=== PATIENT | male | born 1975 | race Caucasian/White ===

== ENCOUNTER 2016-11-22 07:20 | Inpatient (IN) | payer MEDICAID ==
[2016-11-22] VITALS (16 sets, daily range): BP systolic 90–147; BP diastolic 75–107; PULSE 73–106; RESP 16–22; TEMP 98–102.9; O2SAT 97–100
[~2016-11-22] VITALS: Ht 185.4 cm; Wt 71.2 kg
[~2016-11-22 07:20] MED LIST: BACT800T5 PO; ERYT1O LEFT EYE
[2016-11-22] MEDS ORDERED: SODIUM CHLOR 0.9% 1000 ML INJ 1,000 ML IV SCH (07:36)
--- NOTE | 2016-11-22 07:43 | PD ---
HPI Chief Complaint: Cold / Flu Symptoms Time Seen by Provider: 07:25 Travel History International Travel<30 days: No Contact w/Intl Traveler<30days: No Traveled to known affect area: No History of Present Illness HPI The patient's 40 years old. He arrives with flulike symptoms starting about 4 days prior. The patient drank alcohol, about 6 drinks, and ate fried portobello mushrooms the night prior to the onset of symptoms. That morning he woke up nauseated with chest pain. He vomited and had diarrhea. Over the past 2 days nausea persisted. A temperature as high as 102.1 at home was observed. The patient has retrocardiac and left chest pain today. He states that when he lies prone/lateral recumbent on the left side then the pain is more noticeable. He denies exertional component. An occasional cough is reported. He also has shortness of breath. He has no history of diabetes hypertension or hyperlipidemia. There is no family history of coronary artery disease. Patient smokes tobacco about one pack per 2 days. The patient also has generalized abdominal pain the most noticeable in the region of the epigastrium. [facility] Past Medical History Anxiety: Yes Diminished Hearing: No Past Surgical History Eye Surgery: Yes (lazy eye repair as a child) Oral Surgery: Yes (wisdom teeth) Social History Alcohol Use: Yes (occas. beer) Tobacco Use: Yes (1/2 ppd) Substance Use: No Allergies-Medications (Allergen,Severity, Reaction): Coded Allergies: No Known Allergies (Verified , 11/22/16) Reported Meds & Prescriptions Reported Meds & Active Scripts Active No Active Prescriptions or Reported Medications Review of Systems Except as stated in HPI: all other systems reviewed are Neg General / Constitutional: Positive: Fever Cardiovascular: Positive: Chest Pain or Discomfort Respiratory: Positive: Cough (occasional), Shortness of Breath Gastrointestinal: Positive: Nausea, Vomiting, Diarrhea, Abdominal Pain Physical Exam Narrative GENERAL: 40-year-old male well-nourished well-developed mild distress secondary to nausea and her pain SKIN: Focused skin assessment warm/dry. HEAD: Atraumatic. Normocephalic. EYES: Pupils equal and round. No scleral icterus. No injection or drainage. ENT: No nasal bleeding or discharge. Mucous membranes pink and moist. NECK: Trachea midline. No JVD. CARDIOVASCULAR: Heart rate approximately 90. Regular rhythm. RESPIRATORY: Normal respiratory rate. The lungs are clear. GASTROINTESTINAL: The abdomen is soft. There is nonspecific generalized tenderness. MUSCULOSKELETAL: No obvious deformities. No clubbing. No cyanosis. No edema. NEUROLOGICAL: Awake and alert. No obvious cranial nerve deficits. Motor grossly within normal limits. Normal speech. PSYCHIATRIC: Appropriate mood and affect; insight and judgment normal. Data Data Last Documented VS Vital Signs Date Time Temp Pulse Resp B/P Pulse Ox O2 Delivery O2 Flow Rate FiO2 11/22/16 08:17 99.9 11/22/16 08:04 86 18 146/107 98 Room Air Vital signs reviewed Orders Complete Blood Count With Diff (11/22/16 07:36) Comprehensive Metabolic Panel (11/22/16 07:36) Lipase (11/22/16 07:36) Lactic Acid (11/22/16 07:36) Iv Access Insert/Monitor (11/22/16 07:36) Ecg Monitoring (11/22/16 07:36) Oximetry (11/22/16 07:36) Ondansetron Inj (Zofran Inj) (11/22/16 07:45) Sodium Chlor 0.9% 1000 Ml Inj (Ns 1000 M (11/22/16 07:36) Sodium Chloride 0.9% Flush (Ns Flush) (11/22/16 07:45) Electrocardiogram (11/22/16 07:36) Chest, Single Ap (11/22/16 07:36) Al-Mag Hy-Si 40-40-4 Mg/Ml Liq (Mag-Al P (11/22/16 07:45) Lidocaine 2% Viscous (Xylocaine 2% Visco (11/22/16 07:45) Troponin I (11/22/16 07:36) Aspirin (Aspirin) (11/22/16 07:45) Sodium Chlor 0.9% 1000 Ml Inj (Ns 1000 M (11/22/16 07:45) Ketorolac Inj (Toradol Inj) (11/22/16 08:15) Drug Screen, Random Urine (11/22/16 08:29) Morphine Inj (Morphine Inj) (11/22/16 08:30) Nitroglycerin Sl (Nitrostat Sl) (11/22/16 08:30) Ct Pulmonary Angiogram (11/22/16 08:35) Admit Order (Ed Use Only) (11/22/16 08:52) Labs Laboratory Tests Test 11/22/16 07:43 White Blood Count 8.4 TH/MM3 Red Blood Count 5.53 MIL/MM3 Hemoglobin 17.2 GM/DL Hematocrit 53.1 % Mean Corpuscular Volume 96.1 FL Mean Corpuscular Hemoglobin 31.1 PG Mean Corpuscular Hemoglobin 32.4 % Concent Red Cell Distribution Width 13.7 % Platelet Count 189 TH/MM3 Mean Platelet Volume 7.4 FL Neutrophils (%) (Auto) 78.2 % Lymphocytes (%) (Auto) 11.2 % Monocytes (%) (Auto) 9.0 % Eosinophils (%) (Auto) 0.1 % Basophils (%) (Auto) 1.5 % Neutrophils # (Auto) 6.6 TH/MM3 Lymphocytes # (Auto) 0.9 TH/MM3 Monocytes # (Auto) 0.8 TH/MM3 Eosinophils # (Auto) 0.0 TH/MM3 Basophils # (Auto) 0.1 TH/MM3 CBC Comment DIFF FINAL Differential Comment Sodium Level 134 MEQ/L Potassium Level 4.2 MEQ/L Chloride Level 102 MEQ/L Carbon Dioxide Level 22.1 MEQ/L Anion Gap 10 MEQ/L Blood Urea Nitrogen 7 MG/DL Creatinine 1.00 MG/DL Estimat Glomerular Filtration 82 ML/MIN Rate Random Glucose 132 MG/DL Lactic Acid Level 1.3 mmol/L Calcium Level 9.2 MG/DL Total Bilirubin 1.0 MG/DL Aspartate Amino Transf 131 U/L (AST/SGOT) Alanine Aminotransferase 168 U/L (ALT/SGPT) Alkaline Phosphatase 99 U/L Troponin I 0.13 NG/ML Total Protein 7.9 GM/DL Albumin 3.5 GM/DL Lipase 103 U/L [facility] Medical Decision Making Medical Screen Exam Complete: Yes Emergency Medical Condition: Yes Medical Record Reviewed: Yes Differential Diagnosis Viral syndrome, pneumonia, pancreatitis, acute coronary syndrome, gastroenteritis Narrative Course CBC & BMP Diagram 11/22/16 07:43 AST 131 ALT 168 Tn 0.13 EKG: sinus, rate 95, normal axis/intervals CXR: no consolidation 0815: pt reports slight general improvement having received about 500cc NS, Zofran and NS, toradol ordered 0838: pt advised of elevated troponin and plan for transfer to [facility], he confirms occasional pleuritic chest pain, CT pulmonary angiogram added on, cardiology paged, nitro/morphine/oxygen added, hospitalist service paged 0900: d/w Dr Sofia, statin, beta darien, heparin gtt started; cath planned for today; update d/w Dr Lei Critical Care Narrative Aggregate critical care time was 35 minutes. Time to perform other separately billable procedures was not included in the critical care time. My time did not include minutes spent treating any other patients simultaneously or on activities that did not directly contribute to the patient's treatment. The services I provided to this patient were to treat and/or prevent clinically significant deterioration that could result in:. cardiopulmonary arrest, v-fib arrest, multi-organ injury I provided critical care services requiring my management, as noted below: Chart data review, documentation time, medication orders and management, vital sign assessments/reviewing monitor data, ordering and reviewing lab tests, ordering and interpreting/reviewing x-rays and diagnostic studies, care of the patient and discussion of the patient with the admitting physicians. Critical care Diagnosis Primary Impression: NSTEMI (non-ST elevated myocardial infarction) Additional Impression: Transaminitis Admitting Information Admitting Physician Requests: Admit Scripts No Active Prescriptions or Reported Meds Luca Kapoor MD Nov 22, 2016 07:42
[2016-11-22] MEDS ORDERED: LIDOCAINE VISCOUS 2% SOLN 15 ML UDC PO ONE (07:45)
[2016-11-22] MEDS ORDERED: SODIUM CHLORIDE 0.9% FLUSH 10 ML FLUSH IV FLUSH PRN ×2 (07:45→09:15)
[2016-11-22] MEDS ORDERED: ASPIRIN 325 MG TAB PO ONE (07:45)
[2016-11-22] MEDS ORDERED: SODIUM CHLOR 0.9% 1000 ML INJ 1,000 ML IV ONE (07:45)
[2016-11-22] MEDS ORDERED: ONDANSETRON HCL 4 MG/2 ML VIAL IVP ONE (07:45)
[2016-11-22] MEDS ORDERED: ALUMINUM/MAGNESIUM/SIMETH 30 ML CUP PO ONE (07:45)
[2016-11-22 07:54] LABS: AUTOMATED NEUTROPHIL # 6.6 TH/MM3 (1.8-7.7); BASOPHIL # 0.1 TH/MM3 (0-0.2); BASOPHIL % 1.5 % (0.0-2.0); EOSINOPHIL % 0.1 % (0.0-4.0); HEMATOCRIT 53.1 % (39.0-51.0); HEMO FLAGS DIFF FINAL; LYMPH % 11.2 % (9.0-44.0); LYMPHOCYTE # 0.9 TH/MM3 (1.0-4.8); MEAN CELL VOLUME 96.1 FL (80.0-100.0); MEAN CORPUSCULAR HEMOGLOBIN 31.1 PG (27.0-34.0); MEAN CORPUSCULAR HGB CONC 32.4 % (32.0-36.0); NEUT % 78.2 % (16.0-70.0); PLATELET COUNT 189 TH/MM3 (150-450); RED BLOOD COUNT 5.53 MIL/MM3 (4.50-5.90); RED CELL DISTRIBUTION WIDTH 13.7 % (11.6-17.2); WHITE BLOOD COUNT 8.4 TH/MM3 (4.0-11.0)
[2016-11-22 08:03] LABS: CHLORIDE 102 MEQ/L (98-107); POTASSIUM 4.2 MEQ/L (3.5-5.1); SODIUM (NA) 134 MEQ/L (136-145)
[2016-11-22 08:07] LABS: ANION GAP 10 MEQ/L (5-15); BICARBONATE 22.1 MEQ/L (21.0-32.0); BLOOD UREA NITROGEN 7 MG/DL (7-18)
[2016-11-22 08:10] LABS: ALT (GPT) 168 U/L (12-78); AST (GOT) 131 U/L (15-37); GLOMERULAR FILTRATION RATE 82 ML/MIN (>89)
[2016-11-22 08:12] LABS: ALKALINE PHOSPHATASE 99 U/L (45-117)
[2016-11-22] MEDS: KETOROLAC TROMETHAMINE 30 MG/ML (IVP) VIAL IV PUSH ONE ×2 (08:15→09:25)
[2016-11-22] MEDS ORDERED: MORPHINE SULFATE 4 MG/ML INJ IV PUSH ONE (08:30)
[2016-11-22] MEDS: NITROGLYCERIN 0.4 MG SL 25 TABS/BTL SL SCH ×3 (08:40→09:25)
[2016-11-22] MEDS ORDERED: HEPARIN-D5W INJ 250 ML IV SCH (09:00)
[2016-11-22] MEDS ORDERED: ATORVASTATIN 80 MG TAB PO ONE (09:00)
[2016-11-22] MEDS ORDERED: METOPROLOL TARTRATE 25 MG TAB PO ONE (09:00)
[2016-11-22] MEDS ORDERED: HEPARIN SODIUM - IV 10,000 UNITS/10 ML VIAL IV ONE (09:00)
[2016-11-22] MEDS ORDERED: IOHEXOL 350 MG/ML 10 ML VIAL (for RAD DIAG) IV ONE (09:09)
[2016-11-22] MEDS ORDERED: MORPHINE SULFATE 4 MG/ML INJ IV PRN (09:15)
[2016-11-22] MEDS ORDERED: ACETAMINOPHEN 325 MG TAB PO PRN (09:15)
[2016-11-22] MEDS ORDERED: NALOXONE HCL 0.4 MG/ML AMP IV PRN (09:15)
[2016-11-22] MEDS ORDERED: ONDANSETRON HCL 4 MG/2 ML VIAL IVP PRN (09:15)
--- NOTE | 2016-11-22 09:23 | RADRPT ---
EXAM DATE/TIME: 11/22/2016 07:59 [facility] COMPARISON: No previous studies available for comparison. INDICATIONS : Chest pain, nausea, fever, short of breath. MEDICAL HISTORY : None. SURGICAL HISTORY : None. ENCOUNTER: Initial ACUITY: 4 - 6 days PAIN SCORE: 5/10 LOCATION: Bilateral chest FINDINGS: A single view of the chest demonstrates the lungs to be symmetrically aerated without evidence of mas s, infiltrate or effusion. The cardiomediastinal contours are unremarkable. Osseous structures are intact. CONCLUSION: 1. No acute cardiopulmonary disease. Junaid Roy MD on November 22, 2016 at 9:21 Board Certified Radiologist. This report was verified electronically.
[2016-11-22] MEDS ORDERED: ATORVASTATIN 40 MG TAB PO ONE (09:30)
--- NOTE | 2016-11-22 09:36 | RADRPT ---
EXAM DATE/TIME: 11/22/2016 08:51 [facility] COMPARISON: No previous studies available for comparison. INDICATIONS : Left chest pain. Short of breath. IV CONTRAST: 75 cc Omnipaque 350 (iohexol) IV RADIATION DOSE: 11.60 CTDIvol (mGy) MEDICAL HISTORY : None SURGICAL HISTORY : None. ENCOUNTER: Initial ACUITY: 4 - 6 days PAIN SCALE: 8/10 LOCATION: Left chest TECHNIQUE: Volumetric scanning of the chest was performed using a pulmonary embolism protocol MIP images were re constructed. Using automated exposure control and adjustment of the mA and/or kV according to patien t size, radiation dose was kept as low as reasonably achievable to obtain optimal diagnostic quality images. DICOM format image data is available electronically for review and comparison. Follow-up recommendations for incidentally detected pulmonary nodules are based at a minimum on nodul e size and patient risk factors according to Fleischner Society Guidelines. FINDINGS: PULMONARY ARTERIES: No filling defects are seen in the pulmonary arteries through the segmental level. LUNGS: Moderate paraseptal emphysema in the apices bilaterally. Mild interstitial prominence and ground glas s opacities in the lower lobes likely reflect volume loss. 5 mm densely calcified subpleural nodule i n the left medial lower lobe. No significant focal or parenchymal abnormality. PLEURAE: There is no pleural thickening or pleural effusion. MEDIASTINUM: Small calcified mediastinal nodes consistent with prior granulomatous disease. Heart is normal in mar[place]y earance without pericardial effusion. MUSCULOSKELETAL: Within normal limits for patient age. MISCELLANEOUS: The visualized upper abdominal organs demonstrate no acute abnormality. Small calcified paraesophagea l node. CONCLUSION: 1. No CT evidence for pulmonary artery embolism to the subsegmental level. 2. Moderate biapical paraseptal emphysema and mild bibasilar atelectasis/scarring. 3. Calcified left lower lobe granuloma and calcified mediastinal nodes consistent with prior granulom atous disease. Junaid Roy MD on November 22, 2016 at 9:26 Board Certified Radiologist. This report was verified electronically.
[2016-11-22] MEDS: SODIUM CHLOR 0.9% 1000 ML INJ 1,000 ML IV SCH (09:37)
[2016-11-22 10:01] LABS: AMPHETAMINE, URINE NEG (NEG); BARBITURATES, URINE NEG (NEG)
[2016-11-22 10:02] LABS: COCAINE, URINE NEG (NEG)
[2016-11-22 10:28] LABS: APTT (PATIENT) 27.1 SEC (24.3-30.1)
[2016-11-22] MEDS ORDERED: HEPARIN SODIUM - IV 10,000 UNITS/10 ML VIAL IV PRN ×2 (15:00)
[2016-11-22] MEDS ORDERED: HEPARIN-NS/PF INJ 500 ML ONE (15:39)
[2016-11-22] MEDS ORDERED: MIDAZOLAM HCL 5 MG/5 ML VIAL ONE ×2 (15:39→15:59)
[2016-11-22] MEDS ORDERED: SODIUM CHLOR 0.9% 1000 ML INJ 500 ML IV SCH (16:22)
--- NOTE | 2016-11-22 16:25 | CATHPROC ---
[facility] HIS Report Study Information Study Number Admission Scheduled Start Study Start [id number] Nov 22 2016 8:53AM 11/22/2016 Nov 22 2016 3:34PM [facility] Cardiac Catheterization Admit Source Facility Department Transfer in from another acute care facility [facility] - Case Investigator Physician and Clinical Staff Initial Rosa Hess Collarette Separator Hipolito Mondragon,SJ Recorder Nikolas Martinez,AUTHORIZATION COORDINATOR(BS) Scrub Carrie Sanchez,RT(R) (BS) Procedures Performed Procedure Location (Site) Vessel Name Angiogram LV LV Ventricle Coronary Angiograms LCA Left Coronary Coronary Angiograms RCA Right Coronary L Heart Cath Equipment Time Rn Hospice Description Size Mfg Part Number Used/Scraped TRANSDUCER, TRBrainloop [id number] 15:50 GageIn MAN * Used W/STOCKCOCK *[id number] [id number] *[id number] [id number] *[id number] [id number] *[id number] 15:50 MED[employer] IND[employer] PACK, CCL CUSTOM * Used *[id number] 15:50 [employer] Research PACER PEN, SKIN DUAL W/ RULER * Used *[id number] 15:50 [employer] WIRE, 3MMJ .035 180CM 180CM Used *[id number] PROBE COVER, STERILE [id number] 15:50 [email or web address] * Used ULTRASOUND W/ GEL *[id number] 15:50 NAMIC MANIFOLD, 4 PORT * Used *[id number] 15:50 NAMIC TUBING, HIGH PRESSURE 48" 48" Used *[id number] 15:50 NYCOMED OMNIPAQUE, 350 MG, 150ML 150ML [id number] Used [id number] 15:50 ONOFRE MEDICAL BLANKET,WARM AIR CCL * Used *[id number] 15:50 TERUMO MEDICAL SHEATH, FR5 TERUMO (10CM) FR 5 Used *[id number] History: Allergies Allergy Reaction No Known Allergies History: Risk Factors Family History of Hypertension Dyslipidemia Previous OH Previous Heart Failure Premature CAD Yes Yes Yes No No Prior Valve Prior PCI Prior CABG Surgery No No No Cerebrovascular Peripheral Artery Chronic Lung On Dialysis Diabetes Diabetes Therapy Disease Disease Disease No No No No Yes Oral History: Symptoms/Diagnosis Selection Items Chest pain History: Stress Tests Stress or Imaging Studies Performed No History: Other Current Smoker Method Packs a Day Years Used Pack Years Yes Cigarettes 1 30 30 Labs Hgb (g/dl) Hct (%) WBC (l/cumm) Platelets (thousands) 11.60-17.00 35.00-51.00 4.00-11.00 150.00-450.00 17.2 53.1 8.4 189 Glucose (mg/dl) BUN (mg/dl) Creatinine (mg/dl) BUN:Creatinine (1:x) 74.00-106.00 7.00-18.00 0.50-1.30 10.00-20.00 132 7 1.0 7 Na (meq/l) K (meq/l) 136.00-145.00 3.50-5.10 134 4.2 INR (PTT:PT) 0.90-1.10 1 Troponin I (ng/ml) CPK-MB (ng/ML) 0.02-0.05 0.50-3.60 0.21 Not Drawn Medication Medication Total Dose (Bolus/Oral) Medication Total Dosage/Unit 1% XYLOCAINE 20 mL FENTANYL 125 mcg VERSED 6 mg Medications (Bolus/Oral) Medication Time Given Dosage/Unit Administered By Reason VERSED 11/22/2016 1:50:00 PM 1 mg Ferlitto, Hipolito 1 mg VERSED given in lab by Hipolito Mondragon RN in Left Antecubital via Peripheral IV. Ordered by Rosa Carroll. FENTANYL 11/22/2016 1:51:00 PM 50 mcg Ferlitto, Hipolito 50 mcg FENTANYL given in lab by Hipolito Mondragon RN in Left Antecubital via Peripheral IV. Ordered by Rosa Sofia. VERSED 11/22/2016 3:56:11 PM 3 mg Ferlitto, Hipolito 3 mg VERSED given in lab by Hipolito Mondragon RN in Left Antecubital via Peripheral IV. Ordered by Rosa Carroll. FENTANYL 11/22/2016 3:57:20 PM 25 mcg Ferlitto, Hipolito 25 mcg FENTANYL given in lab by Hipolito Mondragon RN in Left Antecubital via Peripheral IV. Ordered by Rosa Sofia. VERSED 11/22/2016 3:58:00 PM 1 mg Ferlitto, Hipolito 1 mg VERSED given in lab by Hipolito Mondragon RN in Left Antecubital via Peripheral IV. Ordered by Rosa Carroll. 1% XYLOCAINE 11/22/2016 3:58:12 PM 20 mL Rosa Sofia 20 mL 1% XYLOCAINE given in lab by Rosa Sofia in Right Groin via Subcutaneous. Ordered by Rosa Escalante. FENTANYL 11/22/2016 3:59:00 PM 25 mcg Hipolito Mondragon 25 mcg FENTANYL given in lab by Hipolito Mondragon RN in Left Antecubital via Peripheral IV. Ordered by Rosa Sofia. VERSED 11/22/2016 4:08:11 PM 1 mg Hipolito Mondragon 1 mg VERSED given in lab by Hipolito Mondrgaon RN in Left Antecubital via Peripheral IV. Ordered by Rosa Carroll. FENTANYL 11/22/2016 4:09:00 PM 25 mcg Hipolito Mondragon 25 mcg FENTANYL given in lab by Hipolito Mondragon RN in Left Antecubital via Peripheral IV. Ordered by Rosa Sofia. Medication (Drip) Medication Time Given Dosage/Unit Concentration/Unit Diluent (ml) Solution IV Solutions 11/22/2016 3:35:37 PM 0 mL (IV) 1000 NaCl .9 Patient arrived on IV Solutions in Left Antecubital via Peripheral IV. Pump/Drip Flow = 20 ml/hr usin g NaCl .9. Ordered by Rosa Sofia. Initial Case Assessment Cardiovascular HR Rhythm NIBP Chest Pain 77 SR 142/79 0 Edema Present Skin color Skin None Normal Warm Dry Circulatory - Right Pulses Dorsalis Pedis Femoral 2 2 Scale (0,1,2,3,4,d) Circulatory - Left Pulses Dorsalis Pedis Femoral 2 2 Scale (0,1,2,3,4,d) Circulatory - Lower Extremities Color Lower Right Color Lower Left Normal Normal Neurological State Oriented to time-place- Alert Moves all extremities person Respiration - General Respiration Rate SpO2 (%) (B/min) 9 99 Final Case Assessment Cardiovascular HR Rhythm NIBP Chest Pain 77 SR 142/79 0 Edema Present Skin color Skin None Normal Warm Dry Circulatory - Right Pulses Dorsalis Pedis Femoral 2 2 Scale (0,1,2,3,4,d) Circulatory - Left Pulses Dorsalis Pedis Femoral 2 2 Scale (0,1,2,3,4,d) Circulatory - Lower Extremities Color Lower Right Color Lower Left Normal Normal Neurological State Oriented to time-place- Alert Moves all extremities person Respiration - General Respiration Rate SpO2 (%) (B/min) 9 99 Chronological Log Time Study Chronological Log 13:50:00 1 mg VERSED given in lab by Hipolito Mondragon, SJ in Left Antecubital via Peripheral IV. Order ed by Rosa Sofia. 13:51:00 50 mcg FENTANYL given in lab by Hipolito Mondragon RN in Left Antecubital via Peripheral IV. O rdered by Rosa Sofia. 15:35:14 Patient arrived via Bed. 15:35:15 Patient Name, D.O.B, / Armband Verified By R.N. 15:35:16 Consent signed by the physician and the patient and verified by the Case Investigator staff. 15:35:17 Pre-op and post- op instructions given; patient acknowledges understanding of instructions. 15:35:22 Patient has been NPO for Less than 6Hrs. 15:35:24 Skin Breakdown- 15:35:25 Patient Warmer Placed on the Table. 15:35:35 A # 20 IV was noted in the Antecubital (left). Grade = 0 Patient arrived on IV Solutions in Left Antecubital via Peripheral IV. Pump/Drip Flow = 20 ml/h r using NaCl .9. Ordered 15:35:37 by Rosa Sofia. 15:35:39 History and physical on the chart or being dictated. Assessment: Initial Case, HR=77 BPM, Rhythm=SR, KRAZ=703/79 mmhg, Chest Pain=0, Edema=None, Col or=Normal, Skin = Warm, Dry Right Pulses: Karel Ped=2, Femoral=2 Left Pulses: Karel Ped=2, Femoral=2 15:35:40 Lower Right Extremities: Color=Normal Lower Left Extremities: Color=Normal Neurological: State=Alert, Ox3, JUAN Respiration: Resp=9 B/min, SpO2=99 % 15:38:00 MD arrived. Vitals capture started with the following parameters, Patient=Adult, Interval=5 min, Initial Pr uchpwr=090 mmHg, 15:41:06 Deflation Rate=5 mmHg 15:41:29 Reference ECG taken 15:41:44 HR=76 bpm, OIUC=882/76 mmhg, SpO2=98.0 %, Resp=13 B/min, Pain=0, Dina=10, Gavin=2 15:46:43 HR=81 bpm, WCHU=952/79 mmhg, SpO2=98.0 %, Resp=21 B/min, Pain=0, Dina=10, Gavin=2 15:48:09 Bilateral groins prepped with 2% chlorhexidine, and with a 3 min. waiting time. 15:51:42 HR=74 bpm, ASHR=029/81 mmhg, SpO2=98.0 %, Resp=13 B/min 15:53:11 Pressure channel 1 zeroed. 15:56:11 3 mg VERSED given in lab by Hipolito Mondragon RN in Left Antecubital via Peripheral IV. Order ed by Rosa Sofia. 15:56:42 HR=81 bpm, OCDT=437/81 mmhg, VuV9=171.0 %, Resp=10 B/min, Pain=0, Dina=10, Gavin=2 15:57:20 25 mcg FENTANYL given in lab by Hipolito Mondragon RN in Left Antecubital via Peripheral IV. O rdered by Rosa Sofia. Time Out. Correct patient, correct procedure,correct physician, power injector loaded with cont rast with surgical team 15:57:43 present. Time Out Concurred by , individual staff in procedure 15:58:00 1 mg VERSED given in lab by Hipolito Mondragon RN in Left Antecubital via Peripheral IV. Order ed by Rosa Sofia. 15:58:11 Case Start 15:58:12 20 mL 1% XYLOCAINE given in lab by Rosa Sofia in Right Groin via Subcutaneous. Ordered by Rosa Sofia. 15:59:00 25 mcg FENTANYL given in lab by Hipolito Mondragon RN in Left Antecubital via Peripheral IV. O rdered by Rosa Sofia. 15:59:29 Access site was Right Femoral Artery. 15:59:38 A SHEATH, FR5 TERUMO (10CM) FR 5 was advanced into the Fem Art (right) using the Percutaneo us technique. A PIGTAIL ANG. INFINITI CATHETER FR 5 was advanced over a wire. OMNIPAQUE, 350 MG, 150ML 150ML was used 15:59:46 for injections. 16:01:43 HR=82 bpm, KISP=617/88 mmhg, SpO2=99.0 %, Resp=13 B/min, Pain=0, Dina=10, Gavin=2 Recorded Pressure: LV, HR=93, Condition=Condition 1 16:01:55 (Left Ventricle) LV 114/7/13 16:02:08 The LV was injected at 10 cc/sec for a total of 30. OMNIPAQUE, 350 MG, 150ML 150ML used. 16:03:10 Activated Clotting Time Drawn 16:03:20 ACT (Normal Range 90-180) = 130 Recorded Pressure: LV, Ao, HR=88, Condition=Condition 1 16:04:27 (Left Ventricle) LV 123/-1/12, (Aorta) Ao 127/75/99 16:04:51 Catheter was removed A JL 4.0 INFINITI CATHETER FR 5 was advanced over a wire. OMNIPAQUE, 350 MG, 150ML 150ML was us ed for 16:04:58 injections. Recorded Pressure: Ao, HR=89, Condition=Condition 1 16:06:03 (Aorta) Ao 123/80/99 16:06:17 The LCA was injected and visualized at various angles. OMNIPAQUE, 350 MG, 150ML 150ML used . 16:06:46 HR=85 bpm, EVZK=595/83 mmhg, SpO2=99.0 %, Resp=21 B/min, Pain=0, Dina=10, Gavin=2 16:07:52 Catheter was removed A AR MOD INFINITI CATHETER FR 5 was advanced over a wire. OMNIPAQUE, 350 MG, 150ML 150ML was us ed for 16:07:53 injections. 16:08:11 1 mg VERSED given in lab by Hipolito Mondragon, SJ in Left Antecubital via Peripheral IV. Orde red by Rosa Sofia. 16:08:36 The RCA was injected and visualized at various angles. OMNIPAQUE, 350 MG, 150ML 150ML use d. 16:09:00 25 mcg FENTANYL given in lab by Hipolito Mondragon, SJ in Left Antecubital via Peripheral IV. Ordered by Rosa Sofia. 16:09:33 Catheter was removed 16:10:35 Case End 16:11:43 HR=93 bpm, UIKM=102/84 mmhg, Resp=23 B/min, Pain=0, Dina=10, Gavin=2 16:16:46 FFTE=905/83 mmhg, Pain=0, Dina=10, Gavin=2 Assessment: Final Case, HR=77 BPM, Rhythm=SR, UNPY=842/79 mmhg, Chest Pain=0, Edema=None, [place] r=Normal, Skin = Warm, Dry Right Pulses: Karel Ped=2, Femoral=2 Left Pulses: Karel Ped=2, Femoral=2 16:21:02 Lower Right Extremities: Color=Normal Lower Left Extremities: Color=Normal Neurological: State=Alert, Ox3, JUAN Respiration: Resp=9 B/min, SpO2=99 % 16:21:32 Sheath(s) left in place, will be removed in Holding Area 16:21:36 Sterile dressing applied to site 16:21:36 No case complications noted. 16:21:39 Cine recording checked. 16:21:40 Patient moved to stretcher 16:21:44 Bedside Report will be given. 16:21:49 Vitals capture stopped. 16:21:53 Contrast Scanned 16:22:21 A Left Heart Cath was performed. End Study - Contrast Media Used In Study Contrast Total Opened (mL) Total Used (mL) Total Wasted (mL) Omnipaque 65 65 0 End Study - Maximum Contrast Load Max Contrast Load (mL) 385.0 End Study - Radiation Exposure Fluoro Time (minutes) 1.5 End Study - Patient Disposition Complications Transferred To No Telemetry Bed
[2016-11-22] MEDS ORDERED: ATROPINE SULFATE 1 MG/10 ML SYRINGE ONE (16:51)
--- NOTE | 2016-11-22 17:02 | HHI.HP ---
[facility] No Primary Care Physician Admission Diagnosis NSTEMI, Transaminitis Diagnoses: (1) NSTEMI (non-ST elevated myocardial infarction) Diagnosis: Principal Chief Complaint: chest pain Travel History International Travel<30 Days: No Contact w/Intl Traveler <30 Da: No Traveled to Known Affected Are: No History of Present Illness patient is a 40 y/o male with no significant past medical history who presented to ER with chest pain. he says that the pain stared this morning. was localized to left chest with no radiation. pain was associated with some nausea and diaphoresis. he reports some fever at home. he was taken to director of cardiac cath lab earlier. at the time of my evaluation he was resting comfortably with no chest pain. Review of Systems Constitutional: COMPLAINS OF: Diaphoretic episodes, DENIES: Fever, Weight loss , Chills, Night Sweats Eyes: DENIES: Blurred vision, Diplopia, Vision loss, Double Vision Ears, nose, mouth, throat: DENIES: Tinnitus, Vertigo, Throat pain, Epistaxis Respiratory: DENIES: Apneas, Cough, Snoring, Wheezing, Hemoptysis, Sputum production, Shortness of breath Cardiovascular: COMPLAINS OF: Chest pain, DENIES: Palpitations, Syncope, Dyspnea on Exertion, PND, Lower Extremity Edema, Orthopnea, Claudication Gastrointestinal: COMPLAINS OF: Nausea, DENIES: Abdominal pain, Black stools, Bloody stools, Constipation, Diarrhea, Vomiting, Difficulty Swallowing, Anorexia Genitourinary: DENIES: Urinary frequency, Urgency, Hematuria, Dysuria Musculoskeletal: DENIES: Joint pain, Muscle aches, Stiffness, Joint Swelling Integumentary: DENIES: Rash Neurologic: DENIES: Abnormal gait, Headache, Localized weakness, Paresthesias, Seizures, Speech Problems, Tremor, Poor Balance Psychiatric: DENIES: Anxiety, Confusion, Mood changes, Depression, Hallucinations, Agitation, Suicidal Ideation, Homicidal Ideation, Delusions Past Family Social History Past Medical History no significant past medical history. Past Surgical History none Reported Medications none. Allergies: Coded Allergies: No Known Allergies (Verified , 11/22/16) Active Ordered Medications Current Medications Ondansetron HCl 4 mg 4 mg ONCE ONCE IVP Last administered on 11/22/16 07:59; Start 11/22/16 at 07:45; Stop 11/22/16 at 07:46; Status DC Sodium Chloride (NS 1000 ml Inj) 1,000 ml @ 1,000 mls/hr Q1H IV Last administered on 11/22/16 07:58; Start 11/22/16 at 07:36; Stop 11/22/16 at 08:35 ; Status DC Sodium Chloride (NS Flush) 2 ml UNSCH PRN IV FLUSH FLUSH AFTER USING IV ACCESS ; Start 11/22/16 at 07:45; Stop 11/22/16 at 09:31; Status DC Al Hydrox/Mg Hydrox/Simethicone (Mag-Al Plus Susp Liq) 30 ml ONCE ONCE PO Last administered on 11/22/16 07:59; Start 11/22/16 at 07:45; Stop 11/22/16 at 07:46; Status DC Lidocaine HCl (Xylocaine 2% Viscous) 15 ml ONCE ONCE PO Last administered on 07:59; Start 11/22/16 at 07:45; Stop 11/22/16 at 07:46; Status DC Aspirin 325 mg 325 mg ONCE ONCE PO Last administered on 11/22/16 07:59; Start 11/22/16 at 07:45; Stop 11/22/16 at 07:46; Status DC Sodium Chloride (NS 1000 ml Inj) 1,000 ml @ 999 mls/hr BOLUS ONCE IV Last administered on 11/22/16 07:59; Start 11/22/16 at 07:45; Stop 11/22/16 at 08:45 ; Status DC Ketorolac Tromethamine (Toradol Inj) 30 mg ONCE ONCE IV PUSH ; Start 11/22/16 at 08:15; Stop 11/22/16 at 08:18; Status DC Morphine Sulfate (Morphine Inj) 2 mg ONCE ONCE IV PUSH Last administered on 09:30; Start 11/22/16 at 08:30; Stop 11/22/16 at 08:31; Status DC Nitroglycerin (Nitrostat Sl) 0.4 mg Q5M SL Last administered on 11/22/16 09:25 ; Start 11/22/16 at 08:30; Stop 11/22/16 at 08:41; Status DC Atorvastatin Calcium (Lipitor) 80 mg ONCE ONCE PO ; Start 11/22/16 at 09:00; Stop 11/22/16 at 09:01; Status Cancel Metoprolol Tartrate (Lopressor) 12.5 mg ONCE ONCE PO Last administered on 11/22 09:21; Start 11/22/16 at 09:00; Stop 11/22/16 at 09:01; Status DC Heparin Sodium (Porcine) (Heparin Inj) 4,000 units ONCE ONCE IV Last administered on 11/22/16 09:21; Start 11/22/16 at 09:00; Stop 11/22/16 at 09:01 ; Status DC Heparin Sodium (Porcine) (Heparin Inj) 5,000 units UNSCH PRN IV APTT LESS THAN 25; Start 11/22/16 at 15:00 Heparin Sodium (Porcine) 2500 units 2,500 units UNSCH PRN IV APTT 25 TO 39; Start 11/22/16 at 15:00 Heparin Sodium/ Dextrose (Heparin-D5W Inj) 250 ml @ 0 mls/hr TITRATE IV Last administered on 11/22/16 09:26; Start 11/22/16 at 09:00 Iohexol 75 ml 75 ml STK-MED ONCE IV Last administered on 11/22/16 09:09; Start 11/22/16 at 09:09; Stop 11/22/16 at 09:10; Status DC Sodium Chloride (NS 1000 ml Inj) 1,000 ml @ 100 mls/hr Q10H IV Last administered on 11/22/16 09:37; Start 11/22/16 at 09:12 Sodium Chloride (NS Flush) 2 ml UNSCH PRN IV FLUSH FLUSH AFTER USING IV ACCESS ; Start 11/22/16 at 09:15 Sodium Chloride (NS Flush) 2 ml BID IV FLUSH ; Start 11/22/16 at 21:00 Acetaminophen (Tylenol) 650 mg Q4H PRN PO TEMP > 100.4; Start 11/22/16 at 09:15 Ondansetron HCl (Zofran Inj) 4 mg Q6H PRN IVP NAUSEA OR VOMITING; Start at 09:15 Acetaminophen (Tylenol) 650 mg Q6H PRN PO PAIN SCALE 1 TO 2; Start 11/22/16 at 09:15 Oxycodone HCl (Roxicodone) 10 mg Q4H PRN PO PAIN SCALE 6 TO 10; Start 11/22/16 at 09:15 Morphine Sulfate (Morphine Inj) 4 mg Q3H PRN IV BREAKTHROUGH PAIN; Start at 09:15 Oxycodone HCl (Roxicodone) 5 mg Q4H PRN PO PAIN SCALE 3 TO 5; Start 11/22/16 at 09:15 Naloxone HCl (Narcan Inj) 0.4 mg UNSCH PRN IV SEE LABEL COMMENTS; Start at 09:15 Senna/Docusate Sodium (Ashli-Colace) 1 tab BID PO ; Start 11/22/16 at 21:00 Atorvastatin Calcium 80 mg 80 mg ONCE ONCE PO Last administered on 11/22/16 09:31; Start 11/22/16 at 09:30; Stop 11/22/16 at 09:31; Status DC Heparin Sodium/ Sodium Chloride (Heparin-NS/Pf Inj) 500 ml @ As Directed STK- MED ONCE .ROUTE Last administered on 11/22/16 15:39; Start 11/22/16 at 15:39; Stop 11/22/16 at 15:40; Status DC Fentanyl Citrate (fentaNYL INJ) 100 mcg STK-MED ONCE .ROUTE Last administered on 11/22/16 15:39; Start 11/22/16 at 15:39; Stop 11/22/16 at 15:40; Status DC Midazolam HCl (Versed Inj) 5 mg STK-MED ONCE .ROUTE Last administered on 15:39; Start 11/22/16 at 15:39; Stop 11/22/16 at 15:40; Status DC Fentanyl Citrate (fentaNYL INJ) 100 mcg STK-MED ONCE .ROUTE Last administered on 11/22/16 15:59; Start 11/22/16 at 15:59; Stop 11/22/16 at 16:00; Status DC Midazolam HCl 5 mg 5 mg STK-MED ONCE .ROUTE Last administered on 11/22/16 15: 59; Start 11/22/16 at 15:59; Stop 11/22/16 at 16:00; Status DC Sodium Chloride (NS 1000 ml Inj) 500 ml @ 100 mls/hr Q5H IV ; Start 11/22/16 at 16:22; Stop 11/22/16 at 20:21; Status UNV Family History hear disease in father. Social History quit smoking few days ago.drinks occasionally. Physical Exam Vital Signs Vital Signs Date Time Temp Pulse Resp B/P Pulse Ox O2 Delivery O2 Flow Rate FiO2 11/22/16 09:51 74 16 119/82 98 Room Air 11/22/16 09:31 94 16 139/77 98 Room Air 11/22/16 09:24 88 16 145/77 98 Room Air 11/22/16 09:18 78 18 147/89 100 Room Air 11/22/16 08:30 84 16 140/94 100 Room Air 11/22/16 08:17 99.9 11/22/16 08:04 99.0 86 18 146/107 98 Room Air 11/22/16 08:02 98 Room Air 11/22/16 07:22 99.0 106 22 145/102 99 Physical Exam GENERAL: This is a well-nourished, well-developed patient, in no apparent distress. SKIN: No rashes, ecchymoses or lesions. Cool and dry. HEAD: Atraumatic. Normocephalic. No temporal or scalp tenderness. EYES: Pupils equal round and reactive. Extraocular motions intact. No scleral icterus. No injection or drainage. ENT: Nose without bleeding, purulent drainage or septal hematoma. Throat without erythema, tonsillar hypertrophy or exudate. Uvula midline. Airway patent. NECK: Trachea midline. No JVD or lymphadenopathy. Supple, nontender, no meningeal signs. CARDIOVASCULAR: Regular rate and rhythm without murmurs, gallops, or rubs. RESPIRATORY: Clear to auscultation. Breath sounds equal bilaterally. No wheezes , rales, or rhonchi. GASTROINTESTINAL: Abdomen soft, non-tender, nondistended. No hepato-splenomegaly , or palpable masses. No guarding. MUSCULOSKELETAL: Extremities without clubbing, cyanosis, or edema. No joint tenderness, effusion, or edema noted. No calf tenderness. Negative Homans sign bilaterally. NEUROLOGICAL: Awake and alert. Cranial nerves II through XII intact. Motor and sensory grossly within normal limits. Five out of 5 muscle strength in all muscle groups. Normal speech. Laboratory Laboratory Tests Test 711/22/16 11/22/16 07:43 09:12 09:55 White Blood Count 8.4 Red Blood Count 5.53 Hemoglobin 17.2 Hematocrit 53.1 Mean Corpuscular Volume 96.1 Mean Corpuscular Hemoglobin 31.1 Mean Corpuscular Hemoglobin 32.4 Concent Red Cell Distribution Width 13.7 Platelet Count 189 Mean Platelet Volume 7.4 Neutrophils (%) (Auto) 78.2 Lymphocytes (%) (Auto) 11.2 Monocytes (%) (Auto) 9.0 Eosinophils (%) (Auto) 0.1 Basophils (%) (Auto) 1.5 Neutrophils # (Auto) 6.6 Lymphocytes # (Auto) 0.9 Monocytes # (Auto) 0.8 Eosinophils # (Auto) 0.0 Basophils # (Auto) 0.1 CBC Comment DIFF FINAL Differential Comment Prothrombin Time 11.0 Prothromb Time International 1.0 Ratio Activated Partial 27.1 Thromboplast Time Sodium Level 134 Potassium Level 4.2 Chloride Level 102 Carbon Dioxide Level 22.1 Anion Gap 10 Blood Urea Nitrogen 7 Creatinine 1.00 Estimat Glomerular Filtration 82 Rate Random Glucose 132 Lactic Acid Level 1.3 Calcium Level 9.2 Total Bilirubin 1.0 Aspartate Amino Transf 131 (AST/SGOT) Alanine Aminotransferase 168 (ALT/SGPT) Alkaline Phosphatase 99 Troponin I 0.13 0.21 Total Protein 7.9 Albumin 3.5 Lipase 103 Urine Opiates Screen NEG Urine Barbiturates Screen NEG Urine Amphetamines Screen NEG Urine Benzodiazepines Screen NEG Urine Cocaine Screen NEG Urine Cannabinoids Screen POS Result Diagram: 11/22/1643 11/22/[address] Angiography 11/22/16 0835 Signed Impressions: Service Date/Time: Tuesday, November 22, 2016 08:51 - CONCLUSION: 1. No CT evidence for pulmonary artery embolism to the subsegmental level. 2. Moderate biapical paraseptal emphysema and mild bibasilar atelectasis/scarring. 3. Calcified left lower lobe granuloma and calcified mediastinal nodes consistent with prior granulomatous disease. Junaid Roy MD Chest X-Ray 11/22/16 0736 Signed Impressions: Service Date/Time: Tuesday, November 22, 2016 07:59 - CONCLUSION: 1. No acute cardiopulmonary disease. Junaid Roy MD EKG; sinus rhythm with no acute ST-T changes. Assessment and Plan Assessment and Plan A/P - NSTEMI started on Heparin drip- s/p cardiac cath- pending the report and cardiology recommendations. check lipid panel. -elevated LFT's- f/u as outpatient. Discussed Condition With the patient and RN. Delores Duarte MD Nov 22, 2016 17:02
[2016-11-22] MEDS ORDERED: IOHEXOL 350 MG/ML 100 ML BTL (for Cath Lab) OTHER ONE (17:15)
[2016-11-22] MEDS ORDERED: IOHEXOL 350 MG/ML 50 ML BTL (for Cath Lab) OTHER ONE (17:15)
--- NOTE | 2016-11-22 17:23 | MB ---
cc: ROSA SOFIA DATE OF CONSULTATION 11/22/2016 REASON FOR CONSULTATION Mr. Melendez is a 40-year-old white male with history of smoking. He presented with flu-like symptoms and yesterday developed severe substernal and parasternal chest discomfort. He also has had cough, nausea and vomiting. PAST MEDICAL HISTORY Negative for hypertension, history of anxiety. MEDICATIONS None. ALLERGIES NONE. SOCIAL HISTORY The patient smokes one-half pack a day. He drinks beer occasionally. FAMILY HISTORY Negative for heart disease. REVIEW OF SYSTEMS Otherwise negative. PHYSICAL EXAMINATION VITAL SIGNS: Blood pressure 119/82, pulse 74 and regular. HEENT: Negative. 2+ carotid upstroke. No bruits. LUNGS: Clear. HEART: Regular with no murmur, gallop or rub. ABDOMEN: Soft. No bruits. EXTREMITIES: Without edema. 2+ distal pulses. NEUROLOGIC: Examination is grossly intact. EKG was reviewed and showed normal sinus rhythm with normal axis and intervals. LABORATORY DATA Hemoglobin 17.2. Potassium 4.2, creatinine 1.0. AST 131, ALT 168. Troponin 0.13 and 0.21. DIAGNOSES 1. Non-ST elevation infarction myocardial infarction. 2. Smoking. DISPOSITION Mr. Melendez will undergo cardiac catheterization, coronary intervention if necessary today by the undersigned proceed. Rosa Sofia MD OQ/KK /3:48 PM /5:05 PM
[2016-11-22 19:47] LABS: APTT (PATIENT) 26.1 SEC (24.3-30.1)
[2016-11-22 19:52] LABS: HDL CHOLESTEROL 39.9 MG/DL (40.0-60.0)
--- NOTE | 2016-11-22 20:14 | EKG ---
Date Performed: 11/22/2016 Time Performed: 10:00:11 PTAGE: 40 years EKG: Sinus rhythm NORMAL ECG PREVIOUS TRACING : 11/22/2016 07.32 Compared to prior tracing no significant change DOCTOR: Rosa Sofia Interpretating Date/Time 11/22/2016 20:13:17
--- NOTE | 2016-11-22 20:26 | EKG ---
Date Performed: 11/22/2016 Time Performed: 07:32:30 PTAGE: 40 years EKG: Sinus rhythm NORMAL ECG PREVIOUS TRACING : 10/12/2014 12.45 Compared to prior tracing no significant change DOCTOR: Rosa Sofia Interpretating Date/Time 11/22/2016 20:25:54
[2016-11-22] MEDS ORDERED: ACETAMINOPHEN 650 MG SUPP RECTAL PRN (20:30)
[2016-11-22] MEDS: DOCUSATE SODIUM 50 MG/SENNA 8.6 MG TAB PO SCH (20:48)
[2016-11-22] MEDS: SODIUM CHLORIDE 0.9% FLUSH 10 ML FLUSH IV FLUSH SCH (20:48)
--- NOTE | 2016-11-22 21:39 | RADRPT ---
EXAM DATE/TIME: 11/22/2016 21:22 [facility] COMPARISON: No previous studies available for comparison. INDICATIONS : Cephalgia. Fever. RADIATION DOSE: 56.77 CTDIvol (mGy) MEDICAL HISTORY : None SURGICAL HISTORY : None. ENCOUNTER: Initial ACUITY: 1 day PAIN SCALE: 6/10 LOCATION: cranial TECHNIQUE: Multiple contiguous axial images were obtained of the head. Using automated exposure control and adj ustment of the mA and/or kV according to patient size, radiation dose was kept as low as reasonably a chievable to obtain optimal diagnostic quality images. DICOM format image data is available electro nically for review and comparison. FINDINGS: CEREBRUM: The ventricles are normal for age. No evidence of midline shift, mass lesion, hemorrhage or acute in farction. No extra-axial fluid collections are seen. POSTERIOR FOSSA: The cerebellum and brainstem are intact. The 4th ventricle is midline. The cerebellopontine angle i s unremarkable. EXTRACRANIAL: The visualized portion of the orbits is intact. SKULL: The calvaria is intact. No evidence of skull fracture. CONCLUSION: No acute intracranial disease. Zak Mendenhall MD on November 22, 2016 at 21:37 Board Certified Radiologist. This report was verified electronically.
[2016-11-22 22:30] LABS: BLOOD, URINE MOD (NEG); COMMENT (UR) CULT NOT INDICATED; CULTURE IF INDICATED CULT NOT INDICATED; GLUCOSE,URINE NEG (NEG); KETONE, URINE 40 mg/dL (NEG); MUCUS URINE FEW /lpf (OCC); NITRITE,URINE NEG (NEG); URINE COLOR YELLOW (YELLW/STRAW)
[2016-11-23] VITALS (23 sets, daily range): BP systolic 110–139; BP diastolic 73–92; PULSE 70–100; RESP 16–18; TEMP 98.3–101.4; O2SAT 97–99
[2016-11-23] MEDS: SODIUM CHLOR 0.9% 1000 ML INJ 1,000 ML IV SCH ×2 (05:12→07:18)
[2016-11-23 06:24] LABS: AUTOMATED NEUTROPHIL # 4.6 TH/MM3 (1.8-7.7); BASOPHIL % 0.7 % (0.0-2.0); EOSINOPHIL % 0.1 % (0.0-4.0); HEMATOCRIT 41.5 % (39.0-51.0); HEMO FLAGS DIFF FINAL; LYMPH % 12.5 % (9.0-44.0); LYMPHOCYTE # 0.8 TH/MM3 (1.0-4.8); MEAN CELL VOLUME 95.7 FL (80.0-100.0); MEAN CORPUSCULAR HEMOGLOBIN 32.9 PG (27.0-34.0); MEAN CORPUSCULAR HGB CONC 34.4 % (32.0-36.0); MONO % 9.4 % (0.0-8.0); NEUT % 77.3 % (16.0-70.0); PLATELET COUNT 142 TH/MM3 (150-450); RED BLOOD COUNT 4.34 MIL/MM3 (4.50-5.90); RED CELL DISTRIBUTION WIDTH 13.7 % (11.6-17.2)
[2016-11-23 06:32] LABS: ANION GAP 11 MEQ/L (5-15); AST (GOT) 83 U/L (15-37); BICARBONATE 22.1 MEQ/L (21.0-32.0); BLOOD UREA NITROGEN 8 MG/DL (7-18); CHLORIDE 100 MEQ/L (98-107); GLOMERULAR FILTRATION RATE 105 ML/MIN (>89); POTASSIUM 3.3 MEQ/L (3.5-5.1); SODIUM (NA) 133 MEQ/L (136-145)
[2016-11-23 06:33] LABS: ALT (GPT) 114 U/L (12-78)
[2016-11-23 06:35] LABS: ALKALINE PHOSPHATASE 78 U/L (45-117); TOTAL BILIRUBIN ADULT 0.7 MG/DL (0.2-1.0)
[2016-11-23] MEDS: DOCUSATE SODIUM 50 MG/SENNA 8.6 MG TAB PO SCH ×2 (08:01→19:05)
[2016-11-23] MEDS: SODIUM CHLORIDE 0.9% FLUSH 10 ML FLUSH IV FLUSH SCH ×2 (08:01→19:29)
[2016-11-23] MEDS: ACETAMINOPHEN 325 MG TAB PO PRN (08:09)
--- NOTE | 2016-11-23 08:21 | HHI.PR ---
Subjective Remarks in no acute distress. no chest pain, sob. no urinary complaints. had a fever of 102.9 last night. otherwise no other complaints. Objective Vitals Vital Signs Date Time Temp Pulse Resp B/P Pulse Ox O2 Delivery O2 Flow Rate FiO2 11/23/16 06:00 95 11/23/16 05:00 83 11/23/16 04:00 79 11/23/16 03:00 99.3 85 18 110/76 99 11/23/16 03:00 73 11/23/16 02:00 71 11/23/16 01:00 70 11/23/16 00:00 88 11/22/16 23:00 73 11/22/16 23:00 99.8 88 18 126/77 98 11/22/16 22:00 82 11/22/16 21:00 90 11/22/16 20:10 102.9 91 18 136/75 97 11/22/16 20:00 88 11/22/16 19:00 85 11/22/16 16:55 98.0 83 18 90/76 99 11/22/16 09:51 74 16 119/82 98 Room Air 11/22/16 09:31 94 16 139/77 98 Room Air 11/22/16 09:24 88 16 145/77 98 Room Air 11/22/16 09:18 78 18 147/89 100 Room Air 11/22/16 08:30 84 16 140/94 100 Room Air I/O 11/22/16 11/22/16 11/22/16 11/23/16 11/23/16 11/23/16 06:59 14:59 22:59 06:59 14:59 22:59 Intake Total 2000 ml 1240 ml 720 ml Output Total 1015 ml Balance 2000 ml 1240 ml -295 ml Intake Oral 240 ml 720 ml IV Total 2000 ml 1000 ml Output Urine Total 1015 ml # Bowel Movements 1 Result Diagram: 11/23/16 0412 11/23/[address] Angiography 11/22/16 0835 Signed Impressions: Service Date/Time: Tuesday, November 22, 2016 08:51 - CONCLUSION: 1. No CT evidence for pulmonary artery embolism to the subsegmental level. 2. Moderate biapical paraseptal emphysema and mild bibasilar atelectasis/scarring. 3. Calcified left lower lobe granuloma and calcified mediastinal nodes consistent with prior granulomatous disease. Junaid Roy MD Chest X-Ray 11/22/16 0736 Signed Impressions: Service Date/Time: Tuesday, November 22, 2016 07:59 - CONCLUSION: 1. No acute cardiopulmonary disease. Junaid Roy MD Head CT 11/22/16 0000 Signed Impressions: Service Date/Time: Tuesday, November 22, 2016 21:22 - CONCLUSION: No acute intracranial disease. Zak Mendenhall MD Objective Remarks GENERAL: This is a well-nourished, well-developed patient, in no apparent distress. CARDIOVASCULAR: Regular rate and regular rhythm without murmurs, gallops, or rubs. RESPIRATORY: Clear to auscultation. Breath sounds equal bilaterally. No wheezes , rales, or rhonchi. GASTROINTESTINAL: Abdomen soft, non-tender, nondistended. Normal, active bowel sounds MUSCULOSKELETAL: Extremities without clubbing, cyanosis, or edema. NEURO: Alert & Oriented x4 to person, place, time, situation. Moves all ext x4 Procedures cardiac cath. Medications and IVs Current Medications Ondansetron HCl 4 mg 4 mg ONCE ONCE IVP Last administered on 11/22/16 07:59; Start 11/22/16 at 07:45; Stop 11/22/16 at 07:46; Status DC Sodium Chloride (NS 1000 ml Inj) 1,000 ml @ 1,000 mls/hr Q1H IV Last administered on 11/22/16 07:58; Start 11/22/16 at 07:36; Stop 11/22/16 at 08:35 ; Status DC Sodium Chloride (NS Flush) 2 ml UNSCH PRN IV FLUSH FLUSH AFTER USING IV ACCESS ; Start 11/22/16 at 07:45; Stop 11/22/16 at 09:31; Status DC Al Hydrox/Mg Hydrox/Simethicone (Mag-Al Plus Susp Liq) 30 ml ONCE ONCE PO Last administered on 11/22/16 07:59; Start 11/22/16 at 07:45; Stop 11/22/16 at 07:46; Status DC Lidocaine HCl (Xylocaine 2% Viscous) 15 ml ONCE ONCE PO Last administered on 07:59; Start 11/22/16 at 07:45; Stop 11/22/16 at 07:46; Status DC Aspirin 325 mg 325 mg ONCE ONCE PO Last administered on 11/22/16 07:59; Start 11/22/16 at 07:45; Stop 11/22/16 at 07:46; Status DC Sodium Chloride (NS 1000 ml Inj) 1,000 ml @ 999 mls/hr BOLUS ONCE IV Last administered on 11/22/16 07:59; Start 11/22/16 at 07:45; Stop 11/22/16 at 08:45 ; Status DC Ketorolac Tromethamine (Toradol Inj) 30 mg ONCE ONCE IV PUSH ; Start 11/22/16 at 08:15; Stop 11/22/16 at 08:18; Status DC Morphine Sulfate (Morphine Inj) 2 mg ONCE ONCE IV PUSH Last administered on 09:30; Start 11/22/16 at 08:30; Stop 11/22/16 at 08:31; Status DC Nitroglycerin (Nitrostat Sl) 0.4 mg Q5M SL Last administered on 11/22/16 09:25 ; Start 11/22/16 at 08:30; Stop 11/22/16 at 08:41; Status DC Atorvastatin Calcium (Lipitor) 80 mg ONCE ONCE PO ; Start 11/22/16 at 09:00; Stop 11/22/16 at 09:01; Status Cancel Metoprolol Tartrate (Lopressor) 12.5 mg ONCE ONCE PO Last administered on 11/22 09:21; Start 11/22/16 at 09:00; Stop 11/22/16 at 09:01; Status DC Heparin Sodium (Porcine) (Heparin Inj) 4,000 units ONCE ONCE IV Last administered on 11/22/16 09:21; Start 11/22/16 at 09:00; Stop 11/22/16 at 09:01 ; Status DC Heparin Sodium (Porcine) (Heparin Inj) 5,000 units UNSCH PRN IV APTT LESS THAN 25; Start 11/22/16 at 15:00 Heparin Sodium (Porcine) 2500 units 2,500 units UNSCH PRN IV APTT 25 TO 39; Start 11/22/16 at 15:00 Heparin Sodium/ Dextrose (Heparin-D5W Inj) 250 ml @ 0 mls/hr TITRATE IV Last administered on 11/22/16 09:26; Start 11/22/16 at 09:00 Iohexol 75 ml 75 ml STK-MED ONCE IV Last administered on 11/22/16 09:09; Start 11/22/16 at 09:09; Stop 11/22/16 at 09:10; Status DC Sodium Chloride (NS 1000 ml Inj) 1,000 ml @ 100 mls/hr Q10H IV Last administered on 11/22/16 09:37; Start 11/22/16 at 09:12 Sodium Chloride (NS Flush) 2 ml UNSCH PRN IV FLUSH FLUSH AFTER USING IV ACCESS ; Start 11/22/16 at 09:15 Sodium Chloride (NS Flush) 2 ml BID IV FLUSH Last administered on 11/23/16 08: 01; Start 11/22/16 at 21:00 Acetaminophen (Tylenol) 650 mg Q4H PRN PO TEMP > 100.4 Last administered on 08:09; Start 11/22/16 at 09:15 Ondansetron HCl (Zofran Inj) 4 mg Q6H PRN IVP NAUSEA OR VOMITING; Start at 09:15 Acetaminophen (Tylenol) 650 mg Q6H PRN PO PAIN SCALE 1 TO 2; Start 11/22/16 at 09:15 Oxycodone HCl (Roxicodone) 10 mg Q4H PRN PO PAIN SCALE 6 TO 10; Start 11/22/16 at 09:15 Morphine Sulfate (Morphine Inj) 4 mg Q3H PRN IV BREAKTHROUGH PAIN; Start at 09:15 Oxycodone HCl (Roxicodone) 5 mg Q4H PRN PO PAIN SCALE 3 TO 5; Start 11/22/16 at 09:15 Naloxone HCl (Narcan Inj) 0.4 mg UNSCH PRN IV SEE LABEL COMMENTS; Start at 09:15 Senna/Docusate Sodium (Ashli-Colace) 1 tab BID PO ; Start 11/22/16 at 21:00 Atorvastatin Calcium 80 mg 80 mg ONCE ONCE PO Last administered on 11/22/16 09:31; Start 11/22/16 at 09:30; Stop 11/22/16 at 09:31; Status DC Heparin Sodium/ Sodium Chloride (Heparin-NS/Pf Inj) 500 ml @ As Directed STK- MED ONCE .ROUTE Last administered on 11/22/16 15:39; Start 11/22/16 at 15:39; Stop 11/22/16 at 15:40; Status DC Fentanyl Citrate (fentaNYL INJ) 100 mcg STK-MED ONCE .ROUTE Last administered on 11/22/16 15:39; Start 11/22/16 at 15:39; Stop 11/22/16 at 15:40; Status DC Midazolam HCl (Versed Inj) 5 mg STK-MED ONCE .ROUTE Last administered on 15:39; Start 11/22/16 at 15:39; Stop 11/22/16 at 15:40; Status DC Fentanyl Citrate (fentaNYL INJ) 100 mcg STK-MED ONCE .ROUTE Last administered on 11/22/16 15:59; Start 11/22/16 at 15:59; Stop 11/22/16 at 16:00; Status DC Midazolam HCl 5 mg 5 mg STK-MED ONCE .ROUTE Last administered on 11/22/16 15: 59; Start 11/22/16 at 15:59; Stop 11/22/16 at 16:00; Status DC Sodium Chloride (NS 1000 ml Inj) 500 ml @ 100 mls/hr Q5H IV ; Start 11/22/16 at 16:22; Stop 11/22/16 at 20:21; Status DC Atropine Sulfate (Atropine Inj) 1 mg STK-MED ONCE .ROUTE ; Start 11/22/16 at 16: 51; Stop 11/22/16 at 16:52; Status DC Iohexol (OMNIPAQUE 350 INJ (Skilled Nursing Professional)) 100 ml STK-MED ONCE OTHER ; Start at 17:15; Stop 11/22/16 at 17:16; Status DC Iohexol (OMNIPAQUE 350 INJ (Skilled Nursing Professional)) 50 ml STK-MED ONCE OTHER ; Start at 17:15; Stop 11/22/16 at 17:16; Status DC Acetaminophen (Tylenol Supp) 650 mg Q6H PRN RECTAL fever >101 if not able po Last administered on 11/22/16 20:48; Start 11/22/16 at 20:30 A/P Assessment and Plan - NSTEMI started on Heparin drip- s/p cardiac cath- pending the report and cardiology recommendations. -fever; source?- CXR , CT chest and UA with no obvious source of infection will follow the blood cultures and monitor temps. -dyslipidemia; will consider adding statin -elevated LFT's- check abdominal sonogram and hepatitis panel. -mild hypokalemia; will replace Delores Duarte MD Nov 23, 2016 08:21
[2016-11-23] MEDS ORDERED: POTASSIUM CHLORIDE 10 MEQ CONTROLLED RELEASE TAB PO ONE (08:30)
--- NOTE | 2016-11-23 12:37 | RADRPT ---
EXAM DATE/TIME: 11/23/2016 09:14 [facility] COMPARISON: No previous studies available for comparison. INDICATIONS : Chest pain, nausea. Increased lab values. MEDICAL HISTORY : Nausea. SURGICAL HISTORY : None. ENCOUNTER: Initial ACUITY: 1 day PAIN SCORE: 0/10 LOCATION: Bilateral upper quadrant MEASUREMENTS: LIVER: 18.2 cm length COMMON DUCT: 4 mm RIGHT KIDNEY: 11.0 x 5.1 x 4.4 cm SPLEEN: 11.4 cm length FINDINGS: LIVER: Increased echotexture without focal lesion or ductal dilatation. COMMON DUCT: No intraluminal mass or stone visualized. GALLBLADDER: Contains no stones, demonstrates no wall thickening or pericholecystic fluid. PANCREAS: The visualized portions are within normal limits. RIGHT KIDNEY: No hydronephrosis, stone or mass. SPLEEN: No focal lesion. CONCLUSION: 1. Liver appears enlarged with diffuse hepatic fatty infiltration. 2. Otherwise negative. Jos Deshpande MD on November 23, 2016 at 12:34 Board Certified Radiologist. This report was verified electronically.
--- NOTE | 2016-11-23 12:44 | PD.CARD.PN ---
Subjective Subjective Remarks No CP or SOB, feels better Objective Medications Current Medications Medications (Trade) Dose Ordered Sig/Darren Route Start Time Stop Time Status Last Admin (Heparin Inj) 5,000 units UNSCH PRN IV 11/22/16 15:00 Heparin Sodium (Porcine) 2500 units 2,500 units UNSCH PRN IV 11/22/16 15:00 Heparin Sodium/ Dextrose 250 ml @ 0 mls/hr TITRATE IV 11/22/16 09:00 11/22/16 09:26 (NS 1000 ml Inj) 1,000 ml @ 100 mls/hr Q10H IV 11/22/16 09:12 11/22/16 09:37 (NS Flush) 2 ml UNSCH PRN IV FLUSH 11/22/16 09:15 (NS Flush) 2 ml BID IV FLUSH 11/22/16 21:00 11/23/16 08:01 (Tylenol) 650 mg Q4H PRN PO 11/22/16 09:15 11/23/16 08:09 (Zofran Inj) 4 mg Q6H PRN IVP 11/22/16 09:15 (Tylenol) 650 mg Q6H PRN PO 11/22/16 09:15 (Roxicodone) 10 mg Q4H PRN PO 11/22/16 09:15 (Morphine Inj) 4 mg Q3H PRN IV 11/22/16 09:15 (Roxicodone) 5 mg Q4H PRN PO 11/22/16 09:15 (Narcan Inj) 0.4 mg UNSCH PRN IV 11/22/16 09:15 (Ashli-Colace) 1 tab BID PO 11/22/16 21:00 (Tylenol Supp) 650 mg Q6H PRN RECTAL 11/22/16 20:30 11/22/16 20:48 Vital Signs / I&O Vital Signs Date Time Temp Pulse Resp B/P Pulse Ox O2 Delivery O2 Flow Rate FiO2 11/23/16 12:00 78 11/23/16 12:00 98.6 82 16 113/73 97 11/23/16 11:00 80 11/23/16 10:20 98 21 11/23/16 10:00 92 11/23/16 09:00 86 11/23/16 08:00 84 11/23/16 08:00 101.4 89 16 138/84 97 11/23/16 07:00 82 11/23/16 06:00 95 11/23/16 05:00 83 11/23/16 04:00 79 11/23/16 03:00 99.3 85 18 110/76 99 11/23/16 03:00 73 11/23/16 02:00 71 11/23/16 01:00 70 11/23/16 00:00 88 11/22/16 23:00 73 11/22/16 23:00 99.8 88 18 126/77 98 11/22/16 22:00 82 11/22/16 21:00 90 11/22/16 20:10 102.9 91 18 136/75 97 11/22/16 20:00 88 11/22/16 19:00 85 11/22/16 16:55 98.0 83 18 90/76 99 I/O 11/22/16 11/22/16 11/22/16 11/23/16 11/23/16 11/23/16 07:00 15:00 23:00 07:00 15:00 23:00 Intake Total 2000 ml 1240 ml 720 ml Output Total 1015 ml Balance 2000 ml 1240 ml -295 ml Intake Oral 240 ml 720 ml IV Total 2000 ml 1000 ml Output Urine Total 1015 ml # Bowel Movements 1 Physical Exam GENERAL: In NAD SKIN: Warm and dry. HEAD: Normocephalic. EYES: No scleral icterus. No injection or drainage. NECK: Supple, trachea midline. No JVD or lymphadenopathy. CARDIOVASCULAR: Regular rate and rhythm without murmurs, gallops, or rubs. RESPIRATORY: Breath sounds equal bilaterally. No accessory muscle use. GASTROINTESTINAL: Abdomen soft, non-tender, nondistended. MUSCULOSKELETAL: No cyanosis, or edema. Groin stable Laboratory Laboratory Tests Test 11/22/16 11/22/16 11/23/16 18:45 21:50 04:12 Activated Partial 26.1 SEC Thromboplast Time Troponin I 0.10 NG/ML Triglycerides Level 183 MG/DL Cholesterol Level 212 MG/DL LDL Cholesterol 136 MG/DL HDL Cholesterol 39.9 MG/DL Cholesterol/HDL Ratio 5.31 RATIO Urine Color YELLOW Urine Turbidity CLEAR Urine pH 6.0 Urine Specific [place] 1.039 Urine Protein TRACE mg/dL Urine Glucose (UA) NEG mg/dL Urine Ketones 40 mg/dL Urine Occult Blood MOD Urine Nitrite NEG Urine Bilirubin NEG Urine Urobilinogen LESS THAN 2.0 MG/DL Urine Leukocyte Esterase NEG Urine RBC 15 /hpf Urine WBC LESS THAN 1 /hpf Urine Mucus FEW /lpf Microscopic Urinalysis Comment CULT NOT INDICATED White Blood Count 6.0 TH/MM3 Red Blood Count 4.34 MIL/MM3 Hemoglobin 14.3 GM/DL Hematocrit 41.5 % Mean Corpuscular Volume 95.7 FL Mean Corpuscular Hemoglobin 32.9 PG Mean Corpuscular Hemoglobin 34.4 % Concent Red Cell Distribution Width 13.7 % Platelet Count 142 TH/MM3 Mean Platelet Volume 8.0 FL Neutrophils (%) (Auto) 77.3 % Lymphocytes (%) (Auto) 12.5 % Monocytes (%) (Auto) 9.4 % Eosinophils (%) (Auto) 0.1 % Basophils (%) (Auto) 0.7 % Neutrophils # (Auto) 4.6 TH/MM3 Lymphocytes # (Auto) 0.8 TH/MM3 Monocytes # (Auto) 0.6 TH/MM3 Eosinophils # (Auto) 0.0 TH/MM3 Basophils # (Auto) 0.0 TH/MM3 CBC Comment DIFF FINAL Differential Comment Sodium Level 133 MEQ/L Potassium Level 3.3 MEQ/L Chloride Level 100 MEQ/L Carbon Dioxide Level 22.1 MEQ/L Anion Gap 11 MEQ/L Blood Urea Nitrogen 8 MG/DL Creatinine 0.81 MG/DL Estimat Glomerular Filtration 105 ML/MIN Rate Random Glucose 89 MG/DL Calcium Level 8.5 MG/DL Total Bilirubin 0.7 MG/DL Aspartate Amino Transf 83 U/L (AST/SGOT) Alanine Aminotransferase 114 U/L (ALT/SGPT) Alkaline Phosphatase 78 U/L Total Protein 6.5 GM/DL Albumin 3.0 GM/DL Lipase 104 U/L Imaging Last Impressions CT Angiography 11/22/16 1798 Signed Impressions: Service Date/Time: Tuesday, November 22, 2016 08:51 - CONCLUSION: 1. No CT evidence for pulmonary artery embolism to the subsegmental level. 2. Moderate biapical paraseptal emphysema and mild bibasilar atelectasis/scarring. 3. Calcified left lower lobe granuloma and calcified mediastinal nodes consistent with prior granulomatous disease. Junaid Roy MD Chest X-Ray 11/22/16 [id number] Signed Impressions: Service Date/Time: Tuesday, November 22, 2016 07:59 - CONCLUSION: 1. No acute cardiopulmonary disease. Junaid Roy MD Head CT 11/22/16 0000 Signed Impressions: Service Date/Time: Tuesday, November 22, 2016 21:22 - CONCLUSION: No acute intracranial disease. Zak Mendenhall MD Assessment and Plan Problem List: (1) NSTEMI (non-ST elevated myocardial infarction) (2) Elevated liver enzymes (3) Smoking Assessment and Plan Cath with no evidence of significant CAD or LV dysfunction. No other cardiac evaluation necessary. Continue current program. Increase activity. Rosa Sofia MD Nov 23, 2016 12:44
[2016-11-24] VITALS (29 sets, daily range): BP systolic 117–135; BP diastolic 77–86; PULSE 68–93; RESP 16–20; TEMP 98.1–101.4; O2SAT 95–99
[2016-11-24] MEDS: SODIUM CHLOR 0.9% 1000 ML INJ 1,000 ML IV SCH ×3 (01:12→21:09)
[2016-11-24] MEDS: ACETAMINOPHEN 325 MG TAB PO PRN ×3 (03:26→23:39)
[2016-11-24] MEDS: SODIUM CHLORIDE 0.9% FLUSH 10 ML FLUSH IV FLUSH SCH ×2 (07:39→21:17)
[2016-11-24] MEDS: DOCUSATE SODIUM 50 MG/SENNA 8.6 MG TAB PO SCH ×2 (07:39→21:00)
--- NOTE | 2016-11-24 08:14 | HHI.PR ---
Subjective Remarks f/u ; fever resting comfortably with no distress. no chest pain, sob or cough. had some night sweats. still with recurrent fever; T max 101.4. noticed some black stools. d/w the RN. Objective Vitals Vital Signs Date Time Temp Pulse Resp B/P Pulse Ox O2 Delivery O2 Flow Rate FiO2 11/24/16 06:00 68 11/24/16 05:00 75 11/24/16 04:00 85 11/24/16 03:00 101.4 93 18 127/86 98 11/24/16 03:00 85 11/24/16 02:00 82 11/24/16 01:00 79 11/24/16 00:00 78 11/23/16 23:00 85 11/23/16 23:00 98.3 83 18 115/79 97 11/23/16 22:00 73 11/23/16 21:00 80 11/23/16 20:00 84 11/23/16 19:00 98.7 89 18 126/85 99 11/23/16 19:00 88 11/23/16 16:00 100.3 99 18 139/92 99 11/23/16 16:00 100 11/23/16 15:00 90 11/23/16 14:00 82 11/23/16 13:00 84 11/23/16 12:00 78 11/23/16 12:00 98.6 82 16 113/73 97 11/23/16 11:00 80 11/23/16 10:20 98 21 11/23/16 10:00 92 11/23/16 09:00 86 I/O 11/23/16 11/23/16 11/23/16 11/24/16 11/24/16 11/24/16 07:00 15:00 23:00 07:00 15:00 23:00 Intake Total 720 ml 720 ml 400 ml Output Total 1015 ml 650 ml 400 ml Balance -295 ml 70 ml 0 ml Intake Oral 720 ml 720 ml 400 ml Output Urine Total 1015 ml 650 ml 400 ml # Bowel Movements 1 1 Result Diagram: 11/23/16 0412 11/23/16 0412 Imaging Last Impressions Liver Ultrasound 11/23/16 0000 Signed Impressions: Service Date/Time: October 09:14 - CONCLUSION: 1. Liver appears enlarged with diffuse hepatic fatty infiltration. 2. Otherwise negative. Jos Deshpande MD CT Angiography 11/22/16 0835 Signed Impressions: Service Date/Time: Tuesday, November 22, 2016 08:51 - CONCLUSION: 1. No CT evidence for pulmonary artery embolism to the subsegmental level. 2. Moderate biapical paraseptal emphysema and mild bibasilar atelectasis/scarring. 3. Calcified left lower lobe granuloma and calcified mediastinal nodes consistent with prior granulomatous disease. Junaid Roy MD Chest X-Ray 11/22/16 0736 Signed Impressions: Service Date/Time: Tuesday, November 22, 2016 07:59 - CONCLUSION: 1. No acute cardiopulmonary disease. Junaid Roy MD Head CT 11/22/16 0000 Signed Impressions: Service Date/Time: Tuesday, November 22, 2016 21:22 - CONCLUSION: No acute intracranial disease. Zak Mendenhall MD Objective Remarks GENERAL: This is a well-nourished, well-developed patient, in no apparent distress. CARDIOVASCULAR: Regular rate and regular rhythm without murmurs, gallops, or rubs. RESPIRATORY: Clear to auscultation. Breath sounds equal bilaterally. No wheezes , rales, or rhonchi. GASTROINTESTINAL: Abdomen soft, non-tender, nondistended. Normal, active bowel sounds MUSCULOSKELETAL: Extremities without clubbing, cyanosis, or edema. NEURO: Alert & Oriented x4 to person, place, time, situation. Moves all ext x4 Procedures cardiac cath. Medications and IVs Current Medications Ondansetron HCl 4 mg 4 mg ONCE ONCE IVP Last administered on 11/22/16 07:59; Start 11/22/16 at 07:45; Stop 11/22/16 at 07:46; Status DC Sodium Chloride (NS 1000 ml Inj) 1,000 ml @ 1,000 mls/hr Q1H IV Last administered on 11/22/16 07:58; Start 11/22/16 at 07:36; Stop 11/22/16 at 08:35 ; Status DC Sodium Chloride (NS Flush) 2 ml UNSCH PRN IV FLUSH FLUSH AFTER USING IV ACCESS ; Start 11/22/16 at 07:45; Stop 11/22/16 at 09:31; Status DC Al Hydrox/Mg Hydrox/Simethicone (Mag-Al Plus Susp Liq) 30 ml ONCE ONCE PO Last administered on 11/22/16 07:59; Start 11/22/16 at 07:45; Stop 11/22/16 at 07:46; Status DC Lidocaine HCl (Xylocaine 2% Viscous) 15 ml ONCE ONCE PO Last administered on 07:59; Start 11/22/16 at 07:45; Stop 11/22/16 at 07:46; Status DC Aspirin 325 mg 325 mg ONCE ONCE PO Last administered on 11/22/16 07:59; Start 11/22/16 at 07:45; Stop 11/22/16 at 07:46; Status DC Sodium Chloride (NS 1000 ml Inj) 1,000 ml @ 999 mls/hr BOLUS ONCE IV Last administered on 11/22/16 07:59; Start 11/22/16 at 07:45; Stop 11/22/16 at 08:45 ; Status DC Ketorolac Tromethamine (Toradol Inj) 30 mg ONCE ONCE IV PUSH ; Start 11/22/16 at 08:15; Stop 11/22/16 at 08:18; Status DC Morphine Sulfate (Morphine Inj) 2 mg ONCE ONCE IV PUSH Last administered on 09:30; Start 11/22/16 at 08:30; Stop 11/22/16 at 08:31; Status DC Nitroglycerin (Nitrostat Sl) 0.4 mg Q5M SL Last administered on 11/22/16 09:25 ; Start 11/22/16 at 08:30; Stop 11/22/16 at 08:41; Status DC Atorvastatin Calcium (Lipitor) 80 mg ONCE ONCE PO ; Start 11/22/16 at 09:00; Stop 11/22/16 at 09:01; Status Cancel Metoprolol Tartrate (Lopressor) 12.5 mg ONCE ONCE PO Last administered on 11/22 09:21; Start 11/22/16 at 09:00; Stop 11/22/16 at 09:01; Status DC Heparin Sodium (Porcine) (Heparin Inj) 4,000 units ONCE ONCE IV Last administered on 11/22/16 09:21; Start 11/22/16 at 09:00; Stop 11/22/16 at 09:01 ; Status DC Heparin Sodium (Porcine) (Heparin Inj) 5,000 units UNSCH PRN IV APTT LESS THAN 25; Start 11/22/16 at 15:00 Heparin Sodium (Porcine) 2500 units 2,500 units UNSCH PRN IV APTT 25 TO 39; Start 11/22/16 at 15:00 Heparin Sodium/ Dextrose (Heparin-D5W Inj) 250 ml @ 0 mls/hr TITRATE IV Last administered on 11/22/16 09:26; Start 11/22/16 at 09:00 Iohexol 75 ml 75 ml STK-MED ONCE IV Last administered on 11/22/16 09:09; Start 11/22/16 at 09:09; Stop 11/22/16 at 09:10; Status DC Sodium Chloride (NS 1000 ml Inj) 1,000 ml @ 100 mls/hr Q10H IV Last administered on 11/22/16 09:37; Start 11/22/16 at 09:12 Sodium Chloride (NS Flush) 2 ml UNSCH PRN IV FLUSH FLUSH AFTER USING IV ACCESS ; Start 11/22/16 at 09:15 Sodium Chloride (NS Flush) 2 ml BID IV FLUSH Last administered on 11/24/16 07: 39; Start 11/22/16 at 21:00 Acetaminophen (Tylenol) 650 mg Q4H PRN PO TEMP > 100.4 Last administered on 03:26; Start 11/22/16 at 09:15 Ondansetron HCl (Zofran Inj) 4 mg Q6H PRN IVP NAUSEA OR VOMITING; Start at 09:15 Acetaminophen (Tylenol) 650 mg Q6H PRN PO PAIN SCALE 1 TO 2 Last administered on 11/23/16 19:28; Start 11/22/16 at 09:15 Oxycodone HCl (Roxicodone) 10 mg Q4H PRN PO PAIN SCALE 6 TO 10 Last administered on 11/24/16 03:22; Start 11/22/16 at 09:15 Morphine Sulfate (Morphine Inj) 4 mg Q3H PRN IV BREAKTHROUGH PAIN; Start at 09:15 Oxycodone HCl (Roxicodone) 5 mg Q4H PRN PO PAIN SCALE 3 TO 5; Start 11/22/16 at 09:15 Naloxone HCl (Narcan Inj) 0.4 mg UNSCH PRN IV SEE LABEL COMMENTS; Start at 09:15 Senna/Docusate Sodium (Ashli-Colace) 1 tab BID PO ; Start 11/22/16 at 21:00 Atorvastatin Calcium 80 mg 80 mg ONCE ONCE PO Last administered on 11/22/16 09:31; Start 11/22/16 at 09:30; Stop 11/22/16 at 09:31; Status DC Heparin Sodium/ Sodium Chloride (Heparin-NS/Pf Inj) 500 ml @ As Directed STK- MED ONCE .ROUTE Last administered on 11/22/16 15:39; Start 11/22/16 at 15:39; Stop 11/22/16 at 15:40; Status DC Fentanyl Citrate (fentaNYL INJ) 100 mcg STK-MED ONCE .ROUTE Last administered on 11/22/16 15:39; Start 11/22/16 at 15:39; Stop 11/22/16 at 15:40; Status DC Midazolam HCl (Versed Inj) 5 mg STK-MED ONCE .ROUTE Last administered on 15:39; Start 11/22/16 at 15:39; Stop 11/22/16 at 15:40; Status DC Fentanyl Citrate (fentaNYL INJ) 100 mcg STK-MED ONCE .ROUTE Last administered on 11/22/16 15:59; Start 11/22/16 at 15:59; Stop 11/22/16 at 16:00; Status DC Midazolam HCl 5 mg 5 mg STK-MED ONCE .ROUTE Last administered on 11/22/16 15: 59; Start 11/22/16 at 15:59; Stop 11/22/16 at 16:00; Status DC Sodium Chloride (NS 1000 ml Inj) 500 ml @ 100 mls/hr Q5H IV ; Start 11/22/16 at 16:22; Stop 11/22/16 at 20:21; Status DC Atropine Sulfate (Atropine Inj) 1 mg STK-MED ONCE .ROUTE ; Start 11/22/16 at 16: 51; Stop 11/22/16 at 16:52; Status DC Iohexol (OMNIPAQUE 350 INJ (Applications Sales Representative)) 100 ml STK-MED ONCE OTHER ; Start at 17:15; Stop 11/22/16 at 17:16; Status DC Iohexol (OMNIPAQUE 350 INJ (Applications Sales Representative)) 50 ml STK-MED ONCE OTHER ; Start at 17:15; Stop 11/22/16 at 17:16; Status DC Acetaminophen (Tylenol Supp) 650 mg Q6H PRN RECTAL fever >101 if not able po Last administered on 11/22/16 20:48; Start 11/22/16 at 20:30 Potassium Chloride (KCl) 30 meq ONCE ONCE PO Last administered on 11/23/16 08 :30; Start 11/23/16 at 08:30; Stop 11/23/16 at 08:31; Status DC A/P Assessment and Plan - NSTEMI started on Heparin drip- s/p cardiac cath- with no significant CAD cleared by cardiology for discharge- previously d/w . -fever; source?- CXR , CT chest and UA with no obvious source of infection will follow the blood cultures and monitor temps. check ESR,CRP,LUCIANO- echo- repeat CBC today and consult ID. -positive hemoccult- stable H/H- GI evaluation as outpatient. -dyslipidemia; - counselled on following the low-fat diet -elevated LFT's- liver sonogram with fatty infiltration of the liver- hepatitis panel negative- will monitor -mild hypokalemia; replacedDelores Bowman MD Nov 24, 2016 08:14
[2016-11-24 12:02] LABS: AUTOMATED NEUTROPHIL # 3.2 TH/MM3 (1.8-7.7); BASOPHIL % 0.8 % (0.0-2.0); EOSINOPHIL % 0.3 % (0.0-4.0); HEMATOCRIT 43.4 % (39.0-51.0); HEMO FLAGS DIFF FINAL; LYMPH % 16.8 % (9.0-44.0); LYMPHOCYTE # 0.7 TH/MM3 (1.0-4.8); MEAN CELL VOLUME 95.1 FL (80.0-100.0); MEAN CORPUSCULAR HEMOGLOBIN 32.6 PG (27.0-34.0); MEAN CORPUSCULAR HGB CONC 34.3 % (32.0-36.0); MONO % 9.6 % (0.0-8.0); NEUT % 72.5 % (16.0-70.0); PLATELET COUNT 138 TH/MM3 (150-450); RED BLOOD COUNT 4.56 MIL/MM3 (4.50-5.90); RED CELL DISTRIBUTION WIDTH 13.8 % (11.6-17.2); WHITE BLOOD COUNT 4.4 TH/MM3 (4.0-11.0)
[2016-11-24 14:03] LABS: WESTERGREN SEDIMENTATION RATE 22 mm/hr (0-15)
--- NOTE | 2016-11-24 15:41 | PD.CARD.PN ---
Subjective Subjective Remarks No CP or SOB, wants to go home Objective Medications Current Medications Medications (Trade) Dose Ordered Sig/Darren Route Start Time Stop Time Status Last Admin (NS 1000 ml Inj) 1,000 ml @ 100 mls/hr Q10H IV 11/22/16 09:12 11/22/16 09:37 (NS Flush) 2 ml UNSCH PRN IV FLUSH 11/22/16 09:15 (NS Flush) 2 ml BID IV FLUSH 11/22/16 21:00 11/24/16 07:39 (Tylenol) 650 mg Q4H PRN PO 11/22/16 09:15 11/24/16 14:19 (Zofran Inj) 4 mg Q6H PRN IVP 11/22/16 09:15 (Tylenol) 650 mg Q6H PRN PO 11/22/16 09:15 11/23/16 19:28 (Roxicodone) 10 mg Q4H PRN PO 11/22/16 09:15 11/24/16 03:22 (Morphine Inj) 4 mg Q3H PRN IV 11/22/16 09:15 (Roxicodone) 5 mg Q4H PRN PO 11/22/16 09:15 11/24/16 13:00 (Narcan Inj) 0.4 mg UNSCH PRN IV 11/22/16 09:15 (Ashli-Colace) 1 tab BID PO 11/22/16 21:00 (Tylenol Supp) 650 mg Q6H PRN RECTAL 11/22/16 20:30 11/22/16 20:48 Vital Signs / I&O Vital Signs Date Time Temp Pulse Resp B/P Pulse Ox O2 Delivery O2 Flow Rate FiO2 11/24/16 14:49 16 11/24/16 13:58 16 11/24/16 12:00 98.9 88 18 122/78 99 11/24/16 12:00 82 11/24/16 11:50 95 11/24/16 11:00 78 11/24/16 10:00 76 11/24/16 09:00 72 11/24/16 08:00 98.1 79 20 135/80 98 11/24/16 08:00 70 11/24/16 07:00 70 11/24/16 06:00 68 11/24/16 05:00 75 11/24/16 04:00 85 11/24/16 03:00 101.4 93 18 127/86 98 11/24/16 03:00 85 11/24/16 02:00 82 11/24/16 01:00 79 11/24/16 00:00 78 11/23/16 23:00 85 11/23/16 23:00 98.3 83 18 115/79 97 11/23/16 22:00 73 11/23/16 21:00 80 11/23/16 20:00 84 11/23/16 19:00 98.7 89 18 126/85 99 11/23/16 19:00 88 11/23/16 16:00 100.3 99 18 139/92 99 11/23/16 16:00 100 I/O 11/23/16 11/23/16 11/23/16 11/24/16 11/24/16 11/24/16 07:00 15:00 23:00 07:00 15:00 23:00 Intake Total 720 ml 720 ml 400 ml Output Total 1015 ml 650 ml 400 ml Balance -295 ml 70 ml 0 ml Intake Oral 720 ml 720 ml 400 ml Output Urine Total 1015 ml 650 ml 400 ml # Bowel Movements 1 1 Physical Exam GENERAL: In NAD SKIN: Warm and dry. HEAD: Normocephalic. EYES: No scleral icterus. No injection or drainage. NECK: Supple, trachea midline. No JVD or lymphadenopathy. CARDIOVASCULAR: Regular rate and rhythm without murmurs, gallops, or rubs. RESPIRATORY: Breath sounds equal bilaterally. No accessory muscle use. GASTROINTESTINAL: Abdomen soft, non-tender, nondistended. MUSCULOSKELETAL: No cyanosis, or edema. Groin stable Laboratory Laboratory Tests Test 11/24/16 11:15 White Blood Count 4.4 TH/MM3 Red Blood Count 4.56 MIL/MM3 Hemoglobin 14.9 GM/DL Hematocrit 43.4 % Mean Corpuscular Volume 95.1 FL Mean Corpuscular Hemoglobin 32.6 PG Mean Corpuscular Hemoglobin 34.3 % Concent Red Cell Distribution Width 13.8 % Platelet Count 138 TH/MM3 Mean Platelet Volume 8.3 FL Neutrophils (%) (Auto) 72.5 % Lymphocytes (%) (Auto) 16.8 % Monocytes (%) (Auto) 9.6 % Eosinophils (%) (Auto) 0.3 % Basophils (%) (Auto) 0.8 % Neutrophils # (Auto) 3.2 TH/MM3 Lymphocytes # (Auto) 0.7 TH/MM3 Monocytes # (Auto) 0.4 TH/MM3 Eosinophils # (Auto) 0.0 TH/MM3 Basophils # (Auto) 0.0 TH/MM3 CBC Comment DIFF FINAL Differential Comment Erythrocyte Sedimentation Rate 22 mm/hr C-Reactive Protein 7.20 MG/DL Imaging Last Impressions Liver Ultrasound 11/23/16 0000 Signed Impressions: Service Date/Time: October 09:14 - CONCLUSION: 1. Liver appears enlarged with diffuse hepatic fatty infiltration. 2. Otherwise negative. Jos Deshpande MD CT Angiography 11/22/16 0835 Signed Impressions: Service Date/Time: Tuesday, November 22, 2016 08:51 - CONCLUSION: 1. No CT evidence for pulmonary artery embolism to the subsegmental level. 2. Moderate biapical paraseptal emphysema and mild bibasilar atelectasis/scarring. 3. Calcified left lower lobe granuloma and calcified mediastinal nodes consistent with prior granulomatous disease. Junaid Roy MD Chest X-Ray 11/22/16 0736 Signed Impressions: Service Date/Time: Tuesday, November 22, 2016 07:59 - CONCLUSION: 1. No acute cardiopulmonary disease. Junaid Roy MD Head CT 11/22/16 0000 Signed Impressions: Service Date/Time: Tuesday, November 22, 2016 21:22 - CONCLUSION: No acute intracranial disease. Zak Mendenhall MD Assessment and Plan Problem List: (1) NSTEMI (non-ST elevated myocardial infarction) (2) Elevated liver enzymes (3) Smoking Assessment and Plan Remains stable from cardiac standpoint. Cath with no evidence of significant CAD or LV dysfunction. The patient was reassured. No other cardiac evaluation necessary at this time. Continue current program. Increase activity. Rosa Sofia MD Nov 24, 2016 15:41
--- NOTE | 2016-11-24 18:27 | PD.CONS ---
History of Present Illness Service Infectious disease Consult Requested By Dr Duarte Reason for Consult Evaluate patient with fever Primary Care Physician No Primary Care Physician Diagnoses: History of Present Illness Patient seen and examined. Records reviewed. Patient is a 40-year-old male presented to the hospital for further evaluation of an acute onset of chest pain. He was actually started not feeling well about 5 days prior to admission. He had some generalized mildly, and did not have a good appetite. His symptoms persisted the following day, and it seems that during the daytime he feels a little bit better and at night he just feels very tired and weak. He did not have any myalgias or any arthralgias. Did not have any sore throat, ear pain, or any respiratory complaint. He didn't have any chills or any sweats, and really didn't feel like he had any fever. Because of his weakness, he missed 2 days of work. On the day of admission, he developed an acute onset of left-sided chest pain. He also started having some nasal congestion. He also vomited. His had some on and off mild headache and neck pain. Denies any photophobia. Has not been around any sick people are sick child. They have a cat at home. No travel. Works in construction. On presentation he was found to have non-ST ID. He underwent immediate cardiac catheterization and there was no significant CAD found. Since admission, he has had intermittent fevers. Highest temperature has been 102.9, and the last 2 days the highest has been around 101+. He usually would break out in sweats after the fever. He has some neck discomfort which he attributes to his bed and pillow. He has no other complaints and no further chest pain. He feels fine and anxious to go home. His chest x-rays normal. CT of the chest showed some findings of emphysema and some basilar scarring or atelectasis. Urinalysis showed some RBC, but no pyuria. Sedimentation rate is 22, and C- reactive protein is 7. His WBC is normal. Blood cultures have been negative. Influenza testing is negative. His stool is positive for occult blood. He is not coughing currently. Infectious disease consultation has been requested to evaluate the patient. Review of Systems Constitutional: COMPLAINS OF: Fever, Change in appetite, Night Sweats, DENIES : Chills Eyes: DENIES: Eye pain, Photosensitivity Ears, nose, mouth, throat: DENIES: Oral lesions, Throat pain, Ear Pain, Sinus Pain, Toothache Respiratory: DENIES: Cough, Sputum production, Shortness of breath Cardiovascular: COMPLAINS OF: Chest pain, DENIES: Lower Extremity Edema Gastrointestinal: COMPLAINS OF: Abdominal pain, Diarrhea, DENIES: Difficulty Swallowing Genitourinary: DENIES: Hematuria, Dysuria Musculoskeletal: COMPLAINS OF: Back pain, DENIES: Joint pain, Muscle aches, Joint Swelling, Neck pain Integumentary: DENIES: Rash Neurologic: COMPLAINS OF: Headache Psychiatric: DENIES: Confusion, Hallucinations Past Family Social History Allergies: Coded Allergies: No Known Allergies (Verified , 11/22/16) Past Medical History None Past Surgical History Surgery on both eyelids as a child Active Ordered Medications Tylenol Morphine Zofran Oxycodone Pericolace Family History Father with heart disease Social History Smoker, stopped when he started not feeling well Occ ETOH UDS (+) marijuana Denies IVDU Works in construction Lives with GF, and kids, been together x 8 years Physical Exam Vital Signs Vital Signs Date Time Temp Pulse Resp B/P Pulse Ox O2 Delivery O2 Flow Rate FiO2 11/24/16 16:00 81 11/24/16 16:00 98.8 83 18 127/86 98 11/24/16 15:00 90 11/24/16 14:49 16 11/24/16 14:00 92 11/24/16 13:58 16 11/24/16 13:30 100.9 11/24/16 13:00 82 11/24/16 12:00 98.9 88 18 122/78 99 11/24/16 12:00 82 11/24/16 11:50 95 11/24/16 11:00 78 11/24/16 10:00 76 11/24/16 09:00 72 11/24/16 08:00 98.1 79 20 135/80 98 11/24/16 08:00 70 11/24/16 07:00 70 11/24/16 06:00 68 11/24/16 05:00 75 11/24/16 04:00 85 11/24/16 03:00 101.4 93 18 127/86 98 11/24/16 03:00 85 11/24/16 02:00 82 11/24/16 01:00 79 11/24/16 00:00 78 11/23/16 23:00 85 11/23/16 23:00 98.3 83 18 115/79 97 11/23/16 22:00 73 11/23/16 21:00 80 11/23/16 20:00 84 11/23/16 19:00 98.7 89 18 126/85 99 11/23/16 19:00 88 Physical Exam GENERAL: Patient is a well-nourished, well-developed CM, awake and alert, not in respiratory distress. SKIN: Warm and dry. No generalized rash, no ecchymoses and no evidence of embolic lesions. HEAD: Atraumatic. Normocephalic. No temporal wasting, or tenderness. EYES: Tillson conjunctiva. No petechia or hemorrhage. Pupils equal, round and reactive to light. Extraocular movements full and intact. No scleral icterus. No injection or drainage. EARS, NOSE AND THROAT: Nose without bleeding or purulent nasal discharge. No sinus tenderness. Mucous membranes pink and moist. No oral lesions noted. No exudate. No oral thrush. NECK: Trachea midline. Supple and not tender, no meningeal sign. NO lymphadenopathy CARDIOVASCULAR: Regular rate and rhythm. No murmurs, rubs or gallops heard RESPIRATORY: Clear to auscultation. Breath sounds equal bilaterally. No rales , wheezing or rhonchi ABDOMEN: Soft, non-tender, nondistended. Bowel sounds present and normoactive. No guarding. No rebound. No organomegaly. EXTREMITIES: No clubbing, cyanosis, or edema.No joint effusion, has good ROM. No calf tenderness. Well perfused and warm. NEUROLOGICAL: Awake and alert. Cranial nerves grossly intact. Motor grossly within normal limits. PSYCHIATRIC: Normal affect, calm and cooperative. LINE: No evidence of infection Laboratory Laboratory Tests Test 11/24/16 11:15 White Blood Count 4.4 Red Blood Count 4.56 Hemoglobin 14.9 Hematocrit 43.4 Mean Corpuscular Volume 95.1 Mean Corpuscular Hemoglobin 32.6 Mean Corpuscular Hemoglobin 34.3 Concent Red Cell Distribution Width 13.8 Platelet Count 138 Mean Platelet Volume 8.3 Neutrophils (%) (Auto) 72.5 Lymphocytes (%) (Auto) 16.8 Monocytes (%) (Auto) 9.6 Eosinophils (%) (Auto) 0.3 Basophils (%) (Auto) 0.8 Neutrophils # (Auto) 3.2 Lymphocytes # (Auto) 0.7 Monocytes # (Auto) 0.4 Eosinophils # (Auto) 0.0 Basophils # (Auto) 0.0 CBC Comment DIFF FINAL Differential Comment Erythrocyte Sedimentation Rate 22 C-Reactive Protein 7.20 Date/Time Procedure Status Source Growth 11/23/16 14:25 Stool Occult Blood (RAGINI) - Final Complete Stool Stool HEMOCCULT POSITIVE 11/23/16 14:25 - Final Complete Stool Stool NO ENTERIC PATHOGENS DETECTED BY PCR... 11/23/16 07:10 Influenza Types A,B Antigen (RAGINI) - Final Complete Nasal Washing NEGATIVE FOR FLU A AND B ANTIGEN.... 11/23/16 01:07 Aerobic Blood Culture - Preliminary Resulted Blood Peripheral NO GROWTH IN 1 DAY 11/23/16 01:07 Anaerobic Blood Culture - Preliminary Resulted Blood Peripheral NO GROWTH IN 1 DAY Result Diagram: 11/24/16 1115 11/23/16 0412 Imaging RADIOLOGY STUDIES/FILMS REVIEWED Liver Ultrasound 11/23/16 0000 Signed Impressions: Service Date/Time: October 09:14 - CONCLUSION: 1. Liver appears enlarged with diffuse hepatic fatty infiltration. 2. Otherwise negative. Jos Deshpande MD CT Angiography 11/22/16 0835 Signed Impressions: Service Date/Time: Tuesday, November 22, 2016 08:51 - CONCLUSION: 1. No CT evidence for pulmonary artery embolism to the subsegmental level. 2. Moderate biapical paraseptal emphysema and mild bibasilar atelectasis/scarring. 3. Calcified left lower lobe granuloma and calcified mediastinal nodes consistent with prior granulomatous disease. Junaid Roy MD Chest X-Ray 11/22/16 0736 Signed Impressions: Service Date/Time: Tuesday, November 22, 2016 07:59 - CONCLUSION: 1. No acute cardiopulmonary disease. Junaid Roy MD Head CT 11/22/16 0000 Signed Impressions: Service Date/Time: Tuesday, November 22, 2016 21:22 - CONCLUSION: No acute intracranial disease. Zak Mendenhall MD Assessment and Plan Assessment and Plan IMPRESSION Febrile illness, etiology? - non-localizing, did have some brief nasal congestion, vomiting, and has elevated LFT, some ROCHE and neck pain but clinically no evidence meningitis - WBC normal; UA with some RBC, stool (+) OB - ?viral - ?atypical, Chlamydia pneumonia, came in with NSTEMI; cath normal NSTEMI RECOMMENDATION Give Zithromax for empiric atypical Rx - 7 days Zithromax I have ordered EBV, CMV, monoscreen, mycoplasma and chlamydia serologies If temps less than 101 overnight, he can be D/C tomorrow morning and finsih 7 days Zithromax Thank you for this consultation Discussed Condition With D/W Irene Vitale MD Nov 24, 2016 18:27
[2016-11-24] MEDS: AZITHROMYCIN 250 MG TAB PO SCH (21:17)
--- NOTE | 2016-11-24 21:53 | MA ---
cc: ROSA SOFIA DATE 11/22/16 INDICATIONS Unstable angina/non-ST elevation myocardial infarction. PROCEDURE PERFORMED 1. Retrograde heart catheterization with left ventriculography and selective coronary angiography. 2. Moderate sedation. ACCESS SITE Right femoral artery. EQUIPMENT USED A 5-Lithuanian pigtail catheter, 5-Lithuanian JL4 and AR modified coronary artery catheters. MEDICATION Versed IV. Fentanyl IV. CONTRAST Omnipaque 65 cc. COMPLICATIONS None. METHOD OF HEMOSTASIS Manual compression. HEMODYNAMICS Heart rate was 80 beats minute. Left end-diastolic pressure 5 mmHg. Left ventricle ___. Aorta 133/80/99. LEFT VENTRICULOGRAM Left ventricular ejection fraction 55%. Wall motion normal. No mitral regurgitation. CORONARY ANGIOGRAPHY Left main coronary patent. Left anterior descending artery patent. V1 patent, V2 patent. Left circumflex artery patent. OM1 patent. OM2 patent. Right coronary artery is a dominant vessel with 10% stenosis at proximal portion, PDA patent, PLV patent. DIAGNOSIS 1. Patent coronary arteries. 2. Preserved left ventricular systolic function. DISPOSITION Mr. Melendez can be reassured of his cardiac status. ____ widely patent coronary arteries and preserved left ventricular systolic function. His chest pain was likely of noncardiac origin. Rosa Sofia MD OJohn/EO /4:19 PM /9:32 PM
--- NOTE | 2016-11-24 22:36 | ECHRPT ---
Indication: Chest pain, unspecified CONCLUSIONS Normal left ventricular size. Wall thickness is normal. The left ventricular systolic function is low normal with an estimated ejection fraction in the rang e of 50- 55%. BP: 122 / 78 HR: 82 Rhythm: Sinus MEASUREMENTS (Male / Female) Normal Values Technical Quality:Good 2D ECHO LV Diastolic Diameter PLAX 4.8 cm 4.2 - 5.9 / 3.9 - 5.3 cm LV Systolic Diameter PLAX 3.8 cm IVS Diastolic Thickness 1.0 cm 0.6 - 1.0 / 0.6 - 0.9 cm LVPW Diastolic Thickness 1.0 cm 0.6 - 1.0 / 0.6 - 0.9 cm LV Relative Wall Thickness 0.4 RV Internal Dim ED PLAX 2.1 cm LA Systolic Diameter LX 3.1 cm 3.0 - 4.0 / 2.7 - 3.8 cm DOPPLER Mitral E Point Velocity 65.6 cm/s Mitral A Point Velocity 51.3 cm/s Mitral E to A Ratio 1.3 TR Peak Velocity 130.0 cm/s TR Peak Gradient 6.8 mmHg FINDINGS LEFT VENTRICLE Normal left ventricular size. Wall thickness is normal. The left ventricular systolic function is low normal with an estimated ejection fraction in the rang e of 50- 55%. RIGHT VENTRICLE Normal right ventricular size and systolic function. LEFT ATRIUM The left atrial size is normal. RIGHT ATRIUM The right atrial size is normal. ATRIAL SEPTUM Normal atrial septal thickness without atrial level shunting by limited color doppler interrogation. AORTA The aortic root and proximal ascending aorta are normal in size on limited imaging. MITRAL VALVE Structurally normal mitral valve. No mitral valve stenosis or regurgitation. AORTIC VALVE Trileaflet aortic valve. No aortic valve stenosis or regurgitation. TRICUSPID VALVE Structurally normal tricuspid valve. No tricuspid valve stenosis or regurgitation. PULMONARY VALVE The pulmonary valve is not well visualized. VESSELS The inferior vena cava is normal in size. PERICARDIUM No pericardial effusion. Eder Saldaña MD (Electronically Signed) Final Date:24 November 2016 22:34
[2016-11-25] VITALS (14 sets, daily range): BP systolic 109–121; BP diastolic 69–87; PULSE 70–118; RESP 16–18; TEMP 98.5–98.7; O2SAT 97–98
[2016-11-25] MEDS: SODIUM CHLOR 0.9% 1000 ML INJ 1,000 ML IV SCH (05:24)
[2016-11-25] MEDS ORDERED: AZIT250T3 PO (08:42)
--- NOTE | 2016-11-25 08:54 | HHI.DS ---
Discharge Summary Admission Date Nov 23, 2016 at 09:24 Discharge Date: Nov 25, 2016 Admitting Diagnosis NSTEMI, Transaminitis (1) NSTEMI (non-ST elevated myocardial infarction) ICD Code: I21.4 Diagnosis: Principal (2) Transaminitis ICD Code: R74.0 Diagnosis: Principal Procedures cardiac cath. Brief History - From Admission patient is a 40 y/o male with no significant past medical history who presented to ER with chest pain. he says that the pain stared this morning. was localized to left chest with no radiation. pain was associated with some nausea and diaphoresis. he reports some fever at home. he was taken to quality control lab tech earlier. at the time of my evaluation he was resting comfortably with no chest pain. CBC/BMP: 11/24/16 1115 11/23/16 0412 Significant Findings Laboratory Tests Test 11/22/16 11/22/16 11/22/16 11/22/16 09:12 09:55 18:45 21:50 Urine Cannabinoids Screen POS (NEG) Troponin I 0.21 NG/ML 0.10 NG/ML (0.02-0.05) (0.02-0.05) Triglycerides Level 183 MG/DL (42-150) Cholesterol Level 212 MG/DL (120-200) LDL Cholesterol 136 MG/DL (0-99) HDL Cholesterol 39.9 MG/DL (40.0-60.0) Urine Specific [place] 1.039 (1.002-1.035) Urine Ketones 40 mg/dL (NEG) Urine Occult Blood MOD (NEG) Urine RBC 15 /hpf (0-3) Urine Mucus FEW /lpf (OCC) Test 11/23/16 11/24/16 04:12 11:15 Red Blood Count 4.34 MIL/MM3 (4.50-5.90) Platelet Count 142 TH/MM3 138 TH/MM3 (150-450) (150-450) Neutrophils (%) (Auto) 77.3 % 72.5 % (16.0-70.0) (16.0-70.0) Monocytes (%) (Auto) 9.4 % (0.0-8.0) 9.6 % (0.0-8.0) Lymphocytes # (Auto) 0.8 TH/MM3 0.7 TH/MM3 (1.0-4.8) (1.0-4.8) Sodium Level 133 MEQ/L (136-145) Potassium Level 3.3 MEQ/L (3.5-5.1) Aspartate Amino Transf 83 U/L (15-37) (AST/SGOT) Alanine Aminotransferase 114 U/L (12-78) (ALT/SGPT) Albumin 3.0 GM/DL (3.4-5.0) Erythrocyte Sedimentation Rate 22 mm/hr (0-15) C-Reactive Protein 7.20 MG/DL (0.00-0.30) PE at Discharge GENERAL: This is a well-nourished, well-developed patient, appears comfortable CARDIOVASCULAR: Regular rate and regular rhythm without murmurs Trachea: midline EYES: EOMI RESPIRATORY: Clear to auscultation. Breath sounds equal bilaterally. No wheezes GASTROINTESTINAL: Abdomen soft, non-tender, nondistended. Normal, active bowel sounds MUSCULOSKELETAL: Extremities without edema. NEURO: Alert & Oriented. Moves all ext x4 Pt update on day of discharge Pt feels "like a million bucks" denies any CP/SOB/N/V. Really wants to go home today to see his 4 yr old daughter. Wishes to have a print out of heart healthy and low fat diet. Hospital Course - NSTEMI s/p Heparin drip- s/p cardiac cath- w patent coronary arteries cleared by cardiology for discharge- previously d/w . f/u w cards as needed. -fever; source?- CXR , CT chest and UA with no obvious source of infection blood cultures so far neg. RN to verify w micro and if blood cx neg x 2 ok to d/ c home. Tmax was 100.5 overnight. Per ID as long as temps < 101 can be discharged w script for azithromycin total of 7 days. Scrip in chart. ESR,CRP are elevated, LUCIANO, EBV, CMV, monoscreen, mycoplasma and chlamydia serologies ordered by ID which are pending. Pt needs to f/u w PCP as an outpatient and he is agreeable to plan. He has discussed w CM and has medicaid pending. - echo- shows EF 50-55% -positive hemoccult- stable H/H- GI evaluation as outpatient. -dyslipidemia; - counselled on following the low-fat, heart healthy diet. RN will provide him w information upon discharge. TG 183, LDL 136, HDL 39.9. LFTs slowly trending down. For now treat w diet and exercise. -elevated LFT's- liver sonogram with fatty infiltration of the liver- hepatitis panel negative- monitor as an outpatient. Mild hypokalemia: K was replaced ok to d/c home today if blood cx neg x 2 days Pt Condition on Discharge: Stable Discharge Disposition: Discharge Home Discharge Time: > 30 minutes Discharge Instructions DIET: Follow Instructions for: Heart Healthy Diet Activities you can perform: Regular-No Restrictions Follow up Referrals: PCP Follow-up - 1 Week New Medications: Azithromycin (Azithromycin) 250 Mg Tab 500 MG PO DAILY to be started 11/25/16 at 2100 Days 6 TAB Desiree Beard MD Nov 25, 2016 08:54
[2016-11-25] MEDS: SODIUM CHLORIDE 0.9% FLUSH 10 ML FLUSH IV FLUSH SCH (09:55)
[2016-11-25] MEDS: AZITHROMYCIN 250 MG TAB PO SCH (09:55)
[2016-11-28 01:12] LABS: EBV VCA IgM Positive (Negative)
== END 2016-11-25 12:30 | disposition home or self-care (01) | DRG 282 ==
LOC: PHED 07:20 → PHEDA 08:53 → HDIC 14:45 → HCIS 16:28 → OBSVTOIN 11-23 09:24
PROVIDERS: ADMIT Hospitalist; ATTEND Hospitalist
PROC: B2111ZZ Fluoroscopy of Multiple Coronary Arteries using Low Osmolar Contrast (ICD-10-PCS; 2016-11-22)
PROC: B2151ZZ Fluoroscopy of Left Heart using Low Osmolar Contrast (ICD-10-PCS; 2016-11-22)
PROC: 4A023N7 Measurement of Cardiac Sampling and Pressure, Left Heart, Percutaneous Approach (ICD-10-PCS; principal; 2016-11-22 15:00)
DX: I21.4 Non-ST elevation (NSTEMI) myocardial infarction (principal); K76.0 Fatty (change of) liver, not elsewhere classified; E78.5 Hyperlipidemia, unspecified; E87.6 Hypokalemia; F17.210 Nicotine dependence, cigarettes, uncomplicated; I20.0 Unstable angina; R19.5 Other fecal abnormalities; R50.9 Fever, unspecified; F41.9 Anxiety disorder, unspecified; R74.0 Nonspecific elevation of levels of transaminase and lactic acid dehydrogenase [LDH]
CPT/HCPCS: 70450; 71010; 71275; 76705; 80053; 80061; 80074; 80307; 81001; 82272; 83605; 83690; 84484; 85002; 85025; 85610; 85652; 85730; 86038; 86140; 86308; 86631; 86632; 86664; 86665; 86738; 87040; 87497; 87506; 87804; 93005; 93306; 93458; 96361; 96374; C1769; C1893; G0378; J0461; J1644; J1885; J2250; J2270; J2405; J3010; J7030; Q9967

== ENCOUNTER 2017-06-09 09:31 | Emergency (ER) | payer MEDICAID ==
[~2017-06-09] VITALS: Ht 182.9 cm; Wt 79.0 kg
[~2017-06-09 09:31] MED LIST changes: +AZIT250T3 PO; -BACT800T5 PO; -ERYT1O LEFT EYE
[2017-06-09 09:40] VITALS: BP 145/77; PULSE 86; RESP 16; TEMP 98.4; O2SAT 97
[2017-06-09] MEDS ORDERED: ROBA750T PO (10:22)
[2017-06-09] MEDS ORDERED: PRED20 PO (10:22)
[2017-06-09] MEDS ORDERED: DICL50TA PO (10:22)
--- NOTE | 2017-06-09 10:23 | PD ---
HPI Chief Complaint: Musculoskeletal Complaint Time Seen by Provider: 10:11 Travel History International Travel<30 days: No Contact w/Intl Traveler<30days: No Traveled to known affect area: No History of Present Illness HPI 41-year-old male presents to the emergency department for evaluation of left hip radiates down his left thigh for 3-4 days. Patient denies any traumatic injury. No loss of bowel or bladder control. No fevers. No saddle anesthesias. Patient denies history of this. 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 He reports history of NC, is not currently on any medications. No allergies to medications. He tried a brace that had pallets and it last night, which did not help. Movement, ambulation exacerbate pain. Rest will help alleviate pain. Moderate severity. PFSH Past Medical History Anxiety: Yes Diminished Hearing: No Myocardial Infarction: Yes Past Surgical History Eye Surgery: Yes (lazy eye repair as a child) Oral Surgery: Yes (wisdom teeth) Social History Alcohol Use: Yes (occas. beer) Tobacco Use: Yes (1/2 ppd) Substance Use: Yes (marijuana occasionally) Allergies-Medications (Allergen,Severity, Reaction): Coded Allergies: No Known Allergies (Verified Adverse Reaction, Unknown, 06/09/17) Reported Meds & Prescriptions Reported Meds & Active Scripts Active No Active Prescriptions or Reported Medications Review of Systems Except as stated in HPI: all other systems reviewed are Neg Physical Exam Narrative GENERAL: Well-nourished, well-developed male patient, afebrile. SKIN: Focused skin assessment warm/dry. HEAD: Normocephalic. Atraumatic. EYES: No scleral icterus. No injection or drainage. NECK: Supple, trachea midline. No JVD or lymphadenopathy. CARDIOVASCULAR: Regular rate and rhythm without murmurs, gallops, or rubs. Bilateral radial and pedal pulses are 2+. RESPIRATORY: Breath sounds equal bilaterally. No accessory muscle use. Lungs sounds are clear to auscultation. GASTROINTESTINAL: Abdomen soft, non-tender, nondistended. MUSCULOSKELETAL: No cyanosis, or edema. Bilateral upper and lower extremity strength 5/5. All extremities are neurovascularly intact. BACK: Nontender without obvious deformity. No CVA tenderness. No midline spinal tenderness. He has tenderness over left lateral hip. Negative straight leg raise. Data Data Last Documented VS Vital Signs Date Time Temp Pulse Resp B/P (MAP) Pulse Ox O2 Delivery O2 Flow Rate FiO2 06/09/17 09:40 98.4 86 16 145/77 (99) 97 Orders Orders Dexamethasone Inj (Decadron Inj) (06/09/17 10:30) Ketorolac Inj (Toradol Inj) (06/09/17 10:30) Orphenadrine Inj (Norflex Inj) (06/09/17 10:30) MDM Medical Decision Making Medical Screen Exam Complete: Yes Emergency Medical Condition: Yes Medical Record Reviewed: Yes Differential Diagnosis Sciatica versus muscle strain versus muscle spasm versus herniated disc Narrative Course 41-year-old male presents to the emergency department for evaluation of left hip pain that radiates down the left leg 3-4 days without injury. No red flag symptoms. Patient appears well on exam. Patient is given dexamethasone 8 mg IM , Toradol 60 mg IM, Norflex 60 mg IM for pain. Patient will be discharged with a prescription for prednisone, diclofenac, Robaxin. He is encouraged to follow- up with a primary care physician. The patient was discharged in stable condition with instructions, including return instructions and follow up instructions. Diagnosis Primary Impression: Sciatica of left side Referrals: Primary Care Physician call for appointment Patient Instructions: General Instructions, Sciatica (ED) Additional Instructions: Take prednisone as directed. Start this tomorrow. Take diclofenac as directed as needed with food for pain. Do not take with other anti-inflammatories including ibuprofen and naproxen. Take Robaxin as directed as needed. Heating pad on low for 20 minutes 4-5 times daily. Follow-up with your primary care physician. Return to the emergency department for any acute worsening of symptoms. Med/Other Pt SpecificInfo: Prescription(s) given Scripts Methocarbamol (Robaxin) 750 Mg Tab 750 MG PO TID Y for MUSCLE SPASM, #21 TAB 0 Refills Prov: Gabriella Almanzar 06/09/17 Diclofenac Potassium (Diclofenac Potassium) 50 Mg Tab 50 MG PO TID Y for PAIN SCALE 1 TO 10, #21 TAB 0 Refills Prov: Gabriella Almanzar 06/09/17 Prednisone (Prednisone) 20 Mg Tab 40 MG PO DAILY for 5 Days, #10 TAB 0 Refills Take 40 mg (2 tablets) daily for 5 days Prov: Gabriella Almanzar 06/09/17 Disposition: 01 DISCHARGE HOME Condition: Stable Gabriella Almanzar Jun 09, 2017 10:23
[2017-06-09] MEDS ORDERED: ORPHENADRINE INJ 60 MG/2 ML AMP IM ONE (10:30)
[2017-06-09] MEDS ORDERED: KETOROLAC TROMETHAMINE 60 MG/2 ML (IM) VIAL IM ONE (10:30)
[2017-06-09] MEDS ORDERED: DEXAMETHASONE SOD PHOS 4 MG/ML VIAL IM ONE (10:30)
== END 2017-06-09 10:32 | disposition home or self-care (01) ==
LOC: PHEFT 09:31
DX: M54.32 Sciatica, left side (principal); I25.2 Old myocardial infarction; F17.210 Nicotine dependence, cigarettes, uncomplicated
CPT/HCPCS: 96372; 99283; J1100; J1885; J2360